=== PATIENT | male | born 1960 | race Caucasian/White ===

== ENCOUNTER 2025-08-22 19:29 | Emergency (ER) | payer BC, SELFPAY ==
[2025-08-22 19:29] VITALS: BP 144/74; PULSE 92; RESP 16; TEMP 36.8; O2SAT 100; BMI 24.4
--- NOTE | 2025-08-22 21:30 | RAD_ITS ---
PROCEDURE: CHEST PA AND LATERAL 08/22/2025 REASON FOR EXAM: COUGH TECHNIQUE: Procedure Code: RADCXR Modality: DX Procedure: CHEST PA AND LATERAL COMPARISON: None. FINDINGS: Lungs/Pleura: Clear. No focal consolidation or pleural effusion. Heart/Mediastinum: Normal in size. Bones/Soft tissues: No significant abnormality. RAD/Chest PA and Lateral IMPRESSION: No acute pulmonary disease. Reading Location: [id number]
--- NOTE | 2025-08-22 21:41 | EDS_ITS ---
HPI HPI - URI History of Present Illness Chief Complaint: Cough Informant: patient Onset/Context/Timing Onset: Today Current Severity: Mild Maximum Severity: Mild Associated Symptoms Associated Symptoms: Positive for Nonproductive cough Narrative Narrative: 65-year-old male diagnosed with COVID on the th. Said his cough is slightly worse today and to make sure he did not develop pneumonia. He denies vomiting. He denies hemoptysis or significant chest pain. Prior similar symptoms: Yes Recent Illness/Hospitalization: No ROS ROS ED ROS Narrative Cough Constitutional Constitutional ED: Denies chills or fever(s) Eyes Eyes: Denies blurry vision ENT ENT ED: Denies ear pain Cardiovascular Cardiovascular: Denies chest pain Respiratory/Chest Respiratory/Chest: Denies cough, dyspnea or dyspnea on exertion Gastrointestinal Gastrointestinal: Denies abdominal pain Genitourinary Genitourinary ED: Denies dysuria or hematuria Musculoskeletal Musculoskeletal: Denies arthralgias Integumentary Denies abscess Neurologic Neurologic: Denies headache(s) Psychiatric Psychiatric: Denies anxiety Endocrine Endocrinology: Denies cold intolerance Hematologic/Lymphatic Hematologic/Lymphatic: Denies easy bleeding Allergic/Immunologic Allergic/Immunologic ED: Denies mouth swelling, tongue swelling or urticaria PFSH PFSH Medical History no medical history no medical history Home Medications ?Medication ?Instructions ?Recorded ?Last Taken ?Type famotidine 40 mg tablet 40 mg PO DAILY 08/22/2508/04 History rosuvastatin 5 mg tablet 5 mg PO DAILY 08/22/2508/21 History Allergy/AdvReac Type Severity Reaction Status Date / Time No Known Allergies Allergy Verified 08/22/25 19:31 Family History no significant family his Surgical History no surgical history Social History Smoking Status: Current every day smoker tobacco type: cigarettes EXAM Physical Exam Narrative Exam Narrative: Well-appearing 65-year-old male. No acute distress. Vital signs stable afebrile. Pulse ox 100% on room air no hypoxia. No distress. H EENT exam pupils round react to light. Moist mucous membranes. Neck nontender no JVD. No lymphadenopathy. Back nontender. Lungs clear to auscultation bilaterally. Heart regular rhythm no murmur rate about 90. Chest wall ribs nontender. Abdomen soft nontender. Moving all 4 extremities. Nontender no edema. Neurologically awake alert no focal motor deficits. Benign exam. Well- appearing. Const Vital Signs: 08/22/25 19:29 08/22/25 21:21 Temperature 98.3 F Temperature Source Oral Pulse Rate 92 Respiratory Rate 16 Respiratory Effort Normal Non-Labored Respiratory Depth Normal Respiratory Pattern Normal Blood Pressure 144/74 H Blood Pressure Mean 97 Pulse Ox 100 Oxygen Delivery Method Room Air Room Air MDM MDM MDM Narrative Medical decision making narrative: 65-year-old male recently diagnosed with COVID 1 to make sure is not developed pneumonia. Exam benign. Chest x-ray was [place] was negative. He will be discharged home. History & Record Review Discussion w/independent historian: Patient Additional record(s) reviewed:: Prior outpatient record, Prior ED visit and Prior labs Radiography Chest X-Ray - ED: 2 View, Read by ED Physician, Normal, Heart, Lungs, Mediastinum, Bony Structures, No Acute Disease and Chronic Changes Diagnostic Testing: Chest x-ray, 2 views, AP and lateral, interpreted by myself shows normal cardiac silhouette. Normal mediastinum. Normal lung gonzalez. No pneumonia. No effusions. Discharge Plan Triage Chief Complaint: Cough ED Provider: Usama Hammer Dx/Rx/DC Orders Clinical Impression: COVID Instructions: Human Coronaviruses Prescriptions: No Action famotidine 40 mg tablet 40 mg PO DAILY rosuvastatin 5 mg tablet 5 mg PO DAILY Primary Care Provider: Marlon Berry Referrals: Marlon Berry MD [Primary Care Provider, [facility]] - As Needed Activity Restrictions/Additional Instructions: Plenty of fluids and rest. Motrin and Tylenol for any pain. Follow-up with your doctor as needed. Your chest x-ray looked good tonight. No signs of pneumonia. Print Language: Divehi Disposition Disposition: Home, Self Care
[2025-08-22 21:43] VITALS: BP 130/67; PULSE 85; RESP 16; TEMP 36.8; O2SAT 97
--- OUTSIDE RECORDS SUMMARY | 2025-08-22 21:49 | XMS RPT_ITS | CCD ---
Author Organization [facility] Informpending [facility] to [facility] [employer] [facility] Care Team Providers Care Janitorial Assistant Name Role Phone Mariela Rico MD Primary Care Provider [phone] Mariela Rico MD Primary Care Provider [phone] Maximo PERAZA.Olga MCGOWAN Unavailable Antonia Ruggiero PA-C Unavailable [phone] Mariela Rico MD Primary Care Provider MARIELA RICO Attending Unavailable MARIELA RICO Primary Care Unavailable MARIELA RICO Referring Unavailable MARIELA RICO Primary Care Unavailable Olga Marsh APRN.CNP Unavailable Antonia Ruggiero PA-C Unavailable [phone] Medications Current Medications Medication Drug Class(es) Dates Sig (Normalized) Sig (Original) amoxicillin 875 mg / clavulanate 125 mg oral tablet (2 sources) Penicillin-class Antibacterial Start: 06-21-2022 End: 06-26-2022 take 1 tablet by mouth twice daily amoxicillin-clavul anic acid (AUGMENTIN) 875-125 mg per tablet Take 1 tablet by mouth twice daily for 5 days. 10 tablet 0 06/21/2022 06/26/2022 Active Comment on above: Take 1 tablet by [facility] twice daily for 5 days. azithromycin 250 mg oral tablet (2 sources) Macrolide Antimicrobial Start: 06-21-2022 End: 06-26-2022 take 2 tablets by mouth once daily, then take 1 tablet by mouth once daily azithromycin (ZITHROMAX) 250 mg tablet Take 2 tablets by mouth once daily for 1 day, THEN 1 tablet once daily for 4 days. 6 tablet 0 06/21/2022 06/26/2022 Active Comment on above: Take 2 tablets by mo [facility] once daily for 1 day, THEN 1 tablet once daily for 4 days. famotidine 40 mg oral tablet (9 sources) Histamine-2 Receptor Antagonist Start: 12-09-2023 End: 04-16-2025 take 1 tablet by mouth once daily famotidine (PEPCID) 40 mg tablet Take 1 tablet by mouth once daily. 90 tablet 1 04/16/2025 Active Comment on above: [facility] mometasone furoate 1 mg/ml topical cream (7 sources) Corticosteroid Start: 12-09-2023 mometasone (ELOCON) 0.1 % cream Apply to areas twice a day. On for 4 days and off for 3 days. Repeat as needed. 15 g 1 12/09/2023 Active Comment on above: Apply to areas twice a day. On for 4 days and off for 3 days. Repeat as needed. rosuvastatin calcium 5 mg oral tablet (20 sources) HMG-CoA Reductase Inhibitor Start: 10-18-2021 End: 04-16-2025 take 1 tablet by mouth once daily at bedtime rosuvastatin (CRESTOR) 5 mg tablet Indications: Hyperlipidemia, mixed Take 1 tablet by mouth daily at bedtime. 90 tablet 1 04/16/2025 Active Comment on above: Take 1 tablet by [facility] daily at bedtime. Completed/Discontinued Medications Medication Drug Class(es) Dates Sig (Normalized) Sig (Original) [id number] 200 actuat albuterol 0.09 mg/actuat metered dose inhaler (3 sources) beta2-Adrenergic Agonist Start: 06-21-2022 take 2 puff(s) by inhalation every six hours as needed albuterol HFA (PROAIR HFA) 90 mcg/actuation inhaler Inhale 2 Puffs as instructed every 6 hours as needed. 1 Each 0 06/21/2022 Active Comment on above: Inhale 2 Puffs as in structed every 6 hours as needed. benzonatate 100 mg oral capsule (4 sources) Non-narcotic Antitussive Start: 06-04-2023 End: 12-09-2023 take 2 capsules by mouth every eight hours as needed benzonatate (TESSALON PERLE) 100 mg capsule Take 2 capsules by mouth three times a day as needed. 30 capsule 0 06/04/2023 12/09/2023 Discontinued (Course of therapy completed) Start: 06-21-2022 take 2 capsules by m outh every eight hours as needed benzonatate (TESSALON PERLES) 100 mg capsule Take 2 capsules by mouth three times daily as needed. 30 capsule 0 06/21/2022 Active Comment on above: Take 2 capsules by m outh three times daily as needed. Take 2 capsules by m outh three times a day as needed. brompheniramine maleate 0.4 mg/ml / dextromethorphan hydrobromide 2 mg/ml / pseudoephedrine hydrochloride 6 mg/ml oral solution (5 sources) alpha-Adrenergic Agonist, Uncompetitive H-abfwzk-N-aspartate Receptor Antagonist, Sigma-1 Agonist Start: 06-16-20 End: 12-11-19 25 take 5 mL by mouth every six hours as needed Brompheniramine-Pse udoeph-DM (BROMFED DM) 2-30-10 mg/5 mL syrup Take 5 mL by mouth four times a day as needed. 118 mL 06/16/2023 12/10/2024 Discontinued (Course of therapy completed) Comment on above: Take 5 mL by mouth f our times a day as needed. ibuprofen 200 mg oral tablet (1 source) Nonsteroidal Anti-inflammatory Drug End: 06-30-20 take 1 tablet by mouth every six hours as needed ibuprofen (ADVIL) 200 mg tablet Take 200 mg by mouth every 6 hours as needed. 06/30/2021 Discontinued (Other) Problems Active Problems Problem Classification Problem Date Documented Date Episodic/Chronic Disorders of lipid metabolism (20 sources) Mixed hyperlipidemia; Translations: [Mixed hyperlipidemia] Onset: 09-18-2021 Chronic Esophageal disorders (8 sources) Gastroesophageal reflux disease without esophagitis; Translations: [Gastro-esophageal reflux disease without esophagitis] Onset: 12-09-2023 12-09-2023 Chronic Immunizations and screening for infectious disease (2 sources) Vaccination needed; Translations: [Encounter for immunization] Onset: 12-10-2024 12-10-2024 Episodic Osteoarthritis (10 sources) Osteoarthritis; Translations: [Unspecified osteoarthritis, unspecified site] Onset: 08-30-2022 08-30-2022 Chronic Other inflammatory condition of skin (20 sources) Psoriasis; Translations: [Psoriasis, unspecified] Onset: 10-17-2007 08-30-2021 Chronic Other lower respiratory disease (2 sources) Cough; Translations: [Acute cough] 06-16-2023 Episodic Other lower respiratory disease (1 source) Cough; Translations: [Acute cough] 06-21-2022 Episodic Other nervous system disorders (1 source) Paresthesia of hand ; Translations: [Anesthesia of skin] 12-09-2023 Episodic Pneumonia (except that caused by tuberculosis or sexually transmitted disease) (1 source) Infective pneumonia; Translations: [Pneumonia, unspecified organism] Episodic Residual codes; unclassified (1 source) Tobacco user; Translations: [Tobacco use] 12-16-2024 Episodic Substance-related disorders (20 sources) Smoker; Translations: [Nicotine dependence, unspecified, uncomplicated] Onset: 07-24-2015 08-30-2021 Chronic Past or Other Problems Problem Classification Problem Date Documented Da te Episodic/Chronic Other screening for suspected conditions (not mental disorders or infectious disease) (20 sources) Patient encounter status; Translations: [Encounter for screening for malignant neoplasm of prostate] Onset: 05-06-2014 05-06-2014 Episodic Other skin disorders (19 sources) Asteatosis cutis; Translations: [Xerosis cutis] Onset: 08-10-2010 07-24-2015 Episodic Residual codes; unclassified (19 sources) Family history of ischemic heart disease; Translations: [Family history of ischemic heart disease and other diseases of the circulatory system] Onset: 08-13-2010 09-18-2021 Episodic Residual codes; unclassified (20 sources) Family history of prostate cancer; Translations: [Family history of malignant neoplasm of prostate] Onset: 08-13-2010 09-18-2021 Episodic Residual codes; unclassified (1 source) Family history of malignant neoplasm of prostate; Translations: [Family hx of prostate cancer] Onset: 09-18-2021 Episodic Results Test Name Value Interpretation Reference Range Facility [facility] 12-10-2024 CNOV Office Visit (FAMPWS ) LUIS LEMON ([id number]) 1960 M NFR Date Time Provider Department 12/10/24 9:00 AM MARIELA RICO During your visit today, we recorded the following information about you: Pulse Respiration Blood pressure Weight 78/minute 18/minute 114/70 69.4 kg Height 1.74 m Mariela Rico MD 12/10/2024 7:17 PM Signed Chief Complaint Patient presents with: Physical HPI Luis Lemon is a 64 year old male who presents here today for Physical. Patient with Hx of hyperlipidemia, psoriasis, smker, family Hx of prostate cancer and those reviewed below. Patient continues to smoke daily and aware of the health risks. Not interested in quitting. Patient continues to have good control of his GERD with the Pepcid. Past medical history, appointments, medications, allergies reviewed. Previous Medical History PAST MEDICAL HISTORY Diagnosis Date Contact dermatitis and other eczema, due to unspecified cause 10/17/2007 Fam hx-ischem heart disease 08/13/2010 Family hx of prostate cancer 08/13/2010 Hyperlipidemia, mixed 09/18/2021 Osteoarthritis 08/30/2022 Knee and shoulder. Sees ortho Psoriasis Smoker 07/24/2015 Started around age 22 and up to 1 PPD Snoring Xerosis cutis 08/10/2010 Previous Surgical History PAST SURGICAL HISTORY Procedure Laterality Date COLONOSCOPY FLX DX W/COLLJ SPEC WHEN PFRMD 10/15/2018 Colonoscopy PAST SURGICAL HISTORY OF 1991 left forearm injury- laceration REPAIR DIAPHR HERNIA,THOR/ABD 2004 +/- Abdominal hernia ([facility]) Family History FAMILY HISTORY Problem Relation Age of Onset None Mother Heart Father first at age 45-50 Emphysema Father Prostate Cancer Other (thinks dad may have had this) Colon Cancer Other none known Patient Allergies ALLERGIES No Known Allergies Current Medications Current Outpatient Medications on File Prior to Visit Medication Sig rosuvastatin (CRESTOR) 5 mg tablet Take 1 tablet by mouth daily at bedtime. famotidine (PEPCID) 40 mg tablet Take 1 tablet by mouth once daily. mometasone (ELOCON) 0.1 % cream Apply to areas twice a day. On for 4 days and off for 3 days. Repeat as needed. Oruvjqogiualzwy-Yeskehlah-MY (BROMFED DM) 2-30-10 mg/5 mL syrup Take 5 mL by mouth four times a day as needed. No current facility-administered medications on file prior to visit. Social History Social History Tobacco Use Smoking status: Every Day Current packs/day: 1.00 Average packs/day: 1 pack/day for 20.0 years (20.0 ttl pk-yrs) Types: Cigarettes Smokeless tobacco: Never Vaping Use Vaping status: Never Used Substance Use Topics Alcohol use: No Drug use: No Comment: hx marijuana use in the past Review of Symptoms REVIEW OF SYSTEMS GENERAL: No unintentional weight loss, malaise or fevers HEENT: Negative for frequent or significant headaches, No changes in hearing or vision, no nose bleeds. Has nasal drainage form allergies. NECK: Negative for lumps, goiter, pain and significant neck swelling RESPIRATORY: Negative for cough, hemoptysis, wheezing, COPD, dyspnea or shortness of breath CARDIOVASCULAR: Negative for chest pain, leg swelling, hypertension, CHF or palpitations GI: No nausea, vomiting, or diarrhea, No heartburn or reflux symptoms, and no blood : No history of dysuria, frequency or blood MUSCULOSKELETAL: Negative for joint pain or swelling, back pain or muscle pain SKIN: Negative for lesions, rash, and itching PSYCH: Negative for sleep disturbance, mood disorder and recent psychosocial stressors HEMATOLOGY/LYMPHOLOGY: Negative for prolonged bleeding, bruising easily or swollen nodes ENDOCRINE: Negative for cold or heat intolerance, polyuria, polydipsia and goiter NEURO: No history of headaches, syncope, paralysis, seizures or tremors EXAM: BP 114/70 Pulse 78 Resp 18 Ht 174 cm (5' 8.5) Wt 69.4 kg (153 lb) BMI 22.93 kg/m? Last 5 Encounter Wt Readings: Date: Wt: 12/10/2024 69.4 kg (153 lb) 12/09/2023 73.9 kg (163 lb) 06/16/2023 72.5 kg (159 lb 12.8 oz) 06/04/2023 72 kg (158 lb 12.8 oz) 08/30/2022 71.7 kg (158 lb) General Appearance: Well appearing, alert, in no acute distress, well-hydrated, well nourished.. Skin: Skin color, texture, turgor normal, no suspicious rashes or lesions. Head: Normocephalic, no masses, lesions, tenderness or abnormalities. Eyes: Anicteric sclera. Pupils are equally round and reactive to light. Extraocular movements are intact. . Ears: External ears, TM's normal, canals clear. Nose/Sinuses: Nares normal, septum midline, mucosa normal, no drainage or sinus tenderness. Oropharynx: Lips, mucosa, and tongue normal, teeth and gums normal, oropharynx normal. Neck: Supple, no adenopathy; thyroid symmetric, normal size, no bruits. Lungs: Lungs clear to auscultation. No wheezing, rhonchi, rales.. Heart: (more content not included)... Normal [facility] Comprehensive metabolic 2000 panelon 12-10-2024 Albumin [Mass/Vol] 4.3 g/dL Normal 3.9-4.9 [facility] Comment on above: Order Comment: Jo mora Type: BLOOD SPECIMEN Ordering Facility: [facility] Address: [address] [place] [address] Performed By: #### 2 4323-8, LIPNF #### [facility] CLIA [id number] [address] [place] [address] [place] ALP [Catalytic activity/Vol] 83 U/L Normal 38-113 [facility] Comment on above: Order Comment: Jo mora Type: BLOOD SPECIMEN Ordering Facility: [facility] Address: [address] [place] [address] Performed By: #### 2 4323-8, LIPNF #### [facility] CLIA [id number] [address] [place] [address] [place] ALT [Catalytic activity/Vol] 8 U/L Low 10-54 [facility] Comment on above: Order Comment: Marcusi abby Type: BLOOD SPECIMEN Ordering Facility: [facility] Address: [address] [place] [address] Performed By: #### 2 4323-8, LIPNF #### [facility] CLIA [id number] [address] [place] [address] [place] Anion gap [Moles/Vol] 9 mmol/L Normal 8-15 [facility] Comment on above: Order Comment: Speci men Type: BLOOD SPECIMEN Ordering Facility: [facility] Address: [address] [place] [address] Performed By: #### 2 4323-8, LIPNF #### [facility] CLIA [id number] [address] [place] [address] [place] AST [Catalytic activity/Vol] 18 U/L Normal 14-40 [facility] Comment on above: Order Comment: Speci men Type: BLOOD SPECIMEN Ordering Facility: [facility] Address: [address] [place] [address] Performed By: #### 2 4323-8, LIPNF #### [facility] CLIA [id number] [address] [place] [address] [place] Bilirubin [Mass/Vol] 0.5 mg/dL Normal 0.2-1.3 [facility] Comment on above: Order Comment: Speci men Type: BLOOD SPECIMEN Ordering Facility: [facility] Address: [address] [place] [address] Performed By: #### 2 4323-8, LIPNF #### [facility] CLIA [id number] [address] [place] [address] [place] Calcium [Mass/Vol] 9.6 mg/dL Normal 8.5-10.2 [facility] Comment on above: Order Comment: Speci men Type: BLOOD SPECIMEN Ordering Facility: [facility] Address: [address] [place] [address] Performed By: #### 2 4323-8, LIPNF #### [facility] CLIA [id number] [address] [place] [address] [place] Chloride [Moles/Vol] 106 mmol/L Normal 98-107 [facility] Comment on above: Order Comment: Speci men Type: BLOOD SPECIMEN Ordering Facility: [facility] Address: [address] [place], [place] [address] Performed By: #### 2 4323-8, LIPNF #### [facility] CLIA [id number] [address] [place] [address] [place] CO2 [Moles/Vol] 27 mmol/L Normal 22-30 [facility] Comment on above: Order Comment: Speci men Type: BLOOD SPECIMEN Ordering Facility: [facility] Address: [address] [place] [address] Performed By: #### 2 4323-8, LIPNF #### [facility] CLIA [id number] [address] [place] [address] [place] Creatinine [Mass/Vol] 1.04 mg/dL Normal 0.73-1.22 [facility] Comment on above: Order Comment: Speci men Type: BLOOD SPECIMEN Ordering Facility: [facility] Address: [address] [place] [address] Performed By: #### 2 4323-8, LIPNF #### [facility] CLIA [id number] [address] [place] [address] [place] Creatinine and Glomerular filtration rate.predicted panel (S/P/Bld) 81 mL/min/1.73m??? Normal >=60 [facility] Comment on above: Order Comment: Speci men Type: BLOOD SPECIMEN Ordering Facility: [facility] Address: [address] [place] [address] Result Comment: Janeen mated Glomerular Filtration Rate (eGFR) is calculated using the 2020 CKD-EPI creatinine equation. This equation utilizes serum creatinine, sex, and age as parameters. The creatinine assay has traceable calibration to isotope dilution-mass spectrometry. Refer to KDIGO guidelines for clinical interpretation. In patients with unstable renal function, e.g. those with acute kidney injury, the eGFR may not accurately reflect actual GFR. Performed By: #### 2 4323-8, LIPNF #### [facility] CLIA [id number] [address] [place] [address] [place] Glucose [Mass/Vol] 82 mg/dL Normal 74-99 [facility] Comment on above: Order Comment: Speci men Type: BLOOD SPECIMEN Ordering Facility: [facility] Address: [address] [place] [address] Result Comment: The [place] Diabetes Association (ADA) provides guidance for cutoff values for fasting glucose and random glucose. The ADA defines fasting as no caloric intake for at least 8 hours. Fasting plasma glucose results between 100 to 125 mg/dL indicate increased risk for diabetes (prediabetes). Fasting plasma glucose results greater than or equal to 126 mg/dL meet the criteria for diagnosis of diabetes. In the absence of unequivocal hyperglycemia, results should be confirmed by repeat testing. In a patient with classic symptoms of hyperglycemia or hyperglycemic crisis, random plasma glucose results greater than or equal to 200 mg/dL meet the criteria for diagnosis of diabetes. Reference: Standards of Medical Care in Diabetes 2016, [place] Diabetes Association. Diabetes Care. 2016.39(Suppl 1). Performed By: #### 2 4323-8, LIPNF #### [facility] CLIA [id number] [address] [place] [address] [place] Potassium [Moles/Vol] 4.1 mmol/L Normal 3.7-5.1 [facility] Comment on above: Order Comment: Jo mora Type: BLOOD SPECIMEN Ordering Facility: [facility] Address: [address] [place] [address] Performed By: #### 2 4323-8, LIPNF #### [facility] CLIA [id number] [address] [place] [address] [place] Protein [Mass/Vol] 7.0 g/dL Normal 6.3-8.0 [facility] Comment on above: Order Comment: Jo mora Type: BLOOD SPECIMEN Ordering Facility: [facility] Address: [address] [place] [address] Performed By: #### 2 4323-8, LIPNF #### [facility] CLIA [id number] [address] [place] [address] [place] Sodium [Moles/Vol] 142 mmol/L Normal 136-144 [facility] Comment on above: Order Comment: Speci men Type: BLOOD SPECIMEN Ordering Facility: [facility] Address: [address] [place] [address] Performed By: #### 2 4323-8, LIPNF #### [facility] CLIA [id number] [address] [place] [address] [place] Urea nitrogen [Mass/Vol] 22 mg/dL Normal 9-24 [facility] Comment on above: Order Comment: Speci men Type: BLOOD SPECIMEN Ordering Facility: [facility] Address: [address] [place] [address] Performed By: #### 2 4323-8, LIPNF #### [facility] CLIA [id number] [address] [place] [address] [place] HbA1c (Bld)on 12-10-2024 Average glucose Estimated from glycated hemoglobin (Bld) [Mass/Vol] 97 mg/dL [facility] Comment on above: eAG: (Estimated aver age glucose) is a calculated value from HgbA1c and is computer help desk representative of the average blood glucose level in the last 2-3 month period. HbA1c (Bld) [Mass fraction] 5 % 4.3 - 5.6 % [facility] Comment on above: [place] Diabetes As sociation guidelines indicate that patients with HgbA1c in the range 5.7-6.4% are at increased risk for development of diabetes, and intervention by lifestyle modification may be beneficial. HgbA1c greater or equal to 6.5% is considered diagnostic of diabetes. [facility] Average glucose Estimated from glycated hemoglobin (Bld) [Mass/Vol] 97 mg/dL Normal [facility] Comment on above: Order Comment: Marcusi men Type: BLOOD SPECIMEN Ordering Facility: [facility] Address: [address] [place] [address] Result Comment: eAG: (Estimated average glucose) is a calculated value from HgbA1c and is computer help desk representative of the average blood glucose level in the last 2-3 month period. Performed By: #### 5 5454-3 #### [facility] CLIA [id number] [address] [place] [address] [place] HbA1c (Bld) [Mass fraction] 5.0 % Normal 4.3-5.6 [facility] Comment on above: Order Comment: Jo mora Type: BLOOD SPECIMEN Ordering Facility: [facility] Address: [address] [place] [address] Result Comment: [place] Diabetes Association guidelines indicate that patients with HgbA1c in the range 5.7-6.4% are at increased risk for development of diabetes, and intervention by lifestyle modification may be beneficial. HgbA1c greater or equal to 6.5% is considered diagnostic of diabetes. Performed By: #### 5 5454-3 #### [facility] CLIA [id number] [address] [place] [address] OF [place] LIPID PANEL, NONFASTINGon Cholesterol [Mass/Vol] 152 mg/dL Normal <200 [facility] Comment on above: Order Comment: Jo mora Type: BLOOD SPECIMEN Ordering Facility: [facility] Address: [address] [place] [address] Result Comment: <200 mg/dL, Desirable 200-239 mg/dL, Borderline high >239 mg/dL, High Performed By: #### 2 4323-8, LIPNF #### [facility] CLIA [id number] [address] [place] [address] [place] [facility] HDL CHOLESTEROL, NF 51 mg/dL Normal >39 [facility] Comment on above: Order Comment: Jo mora Type: BLOOD SPECIMEN Ordering Facility: [facility] Address: [address] [place] [address] Result Comment: 40-5 9 mg/dL, Acceptable >59 mg/dL, High: Negative risk factor for coronary heart disease <40 mg/dL, Low: Positive risk factor for coronary heart disease Performed By: #### 2 4323-8, LIPNF #### [facility] CLIA [id number] [address] [place] [address] [place] LDL CHOLESTEROL, NF 88 mg/dL Normal <100 [facility] Comment on above: Order Comment: Jo mora Type: BLOOD SPECIMEN Ordering Facility: [facility] Address: [address] [place] [address] Result Comment: <100 mg/dL, Optimal 100-129 mg/dL, Near optimal/above optimal 130-159 mg/dL, Borderline high 160-189 mg/dL, High >189 mg/dL, Very high Secondary prevention optimal LDL Cholesterol levels are recommended to be < 70 mg/dL Performed By: #### 2 4323-8, LIPNF #### [facility] CLIA [id number] [address] [place] [address] [place] LDL/HDL RATIO, NF 1.73 mg/dL Normal <2.54 [facility] Comment on above: Order Comment: Jo omra Type: BLOOD SPECIMEN Ordering Facility: [facility] Address: [address] [place] [address] Result Comment: Yocasta benton: 1. National Cholesterol Education Program ATP III Guideline At-A-Glance Quick Desk Reference: National Heart, Lung, and Blood [place]. National Institutes of Health. 2001: NIH Publication No. 01-3305. 2. An International Atherosclerosis Society position paper: global recommendations for the management of dyslipidemia: executive summary, Atherosclerosis. 2014: 232(2):410-413. Performed By: #### 2 4323-8, LIPNF #### [facility] CLIA [id number] [address] [place] [address] [place] NON HDL CHOL, NF 101 mg/dL Normal <130 [facility] Comment on above: Order Comment: Jo abby Type: BLOOD SPECIMEN Ordering Facility: [facility] Address: [address] [place] [address] Result Comment: <130 mg/dL, Optimal 130-159 mg/dL, Near optimal/above optimal 160-189 mg/dL, Borderline high 190-219 mg/dL, High >219 mg/dL, Very high Secondary prevention optimal non HDL Cholesterol levels are recommended to be <100 mg/dL Performed By: #### 2 4323-8, LIPNF #### [facility] CLIA [id number] [address] [place] [address] [place] T CHOL/HDL RATIO NF 2.98 mg/dL Normal <5.10 [facility] Comment on above: Order Comment: Speci men Type: BLOOD SPECIMEN Ordering Facility: [facility] Address: [address] [place] [address] Performed By: #### 2 4323-8, LIPNF #### [facility] CLIA [id number] [address] [place] [address] [place] TRIGLYCERIDES, NF 66 mg/dL Normal <150 [facility] Comment on above: Order Comment: Speci men Type: BLOOD SPECIMEN Ordering Facility: [facility] Address: [address] [place] [address] Result Comment: <150 mg/dL, Normal 150-199 mg/dL, Borderline high 200-499 mg/dL, High >499 mg/dL, Very high Performed By: #### 2 4323-8, LIPNF #### [facility] CLIA [id number] [address] [place] [address] [place] VLDL CHOLESTEROL, NF 13 mg/dL Normal <30 [facility] Comment on above: Order Comment: Speci men Type: BLOOD SPECIMEN Ordering Facility: [facility] Address: [address] [place] [address] Performed By: #### 2 4323-8, LIPNF #### [facility] CLIA [id number] [address] [place] [address] [place] PSA SerPl-mCncon 12-10-2024 Prostate specific Ag [Mass/Vol] 0.48 ng/mL Normal <2.60 [facility] Comment on above: Order Comment: Speci men Type: BLOOD SPECIMEN Ordering Facility: [facility] Address: [address] [place] [address] Result Comment: Tota l PSA test methodology used is the Electrochemiluminescence Immunoassay by [employer]. Total PSA values by differing methodologies cannot be interchanged. Performed By: #### 2 857-1 #### [facility] CLIA [id number] [address] [place], [place] [address] [address] [place] Urinalysis complete panel (U )on 12-10-2024 Bacteria LM.HPF (Urine sed) [#/Area] Negative Negative /HPF [facility] Bilirubin Ql (U) Negative Negative [facility] Clarity (Unsp spec) Clear Clear [facility] Color (U) Yellow Yellow [facility] Epithelial cells LM.HPF (Urine sed) [#/Area] None Seen /HPF [facility] Glucose Test strip (U) [Mass/Vol] Negative Negative [facility] Hemoglobin Ql (U) Negative Negative [facility] Hyaline casts (Urine sed) [#/Area] 0 /[LPF] 0 /LPF [facility] Interpretation and review of laboratory results Abnormal [facility] Ketones Ql (U) Negative Negative [facility] Leukocyte esterase Test strip Ql (U) Negative Negative [facility] Nitrite Ql (U) Negative Negative [facility] pH (U) 6 [pH] NINF - 8.5 [facility] Protein (U) [Mass/Vol] Trace Abnormal Negative [facility] RBC LM.HPF (Urine sed) [#/Area] 0-2 /HPF 0-2 /HPF [facility] Specific gravity (U) [Rel density] 1.027 1.005 - 1.030 [facility] Urobilinogen Ql (U) 1.0 EU/dL 0.2-1.0 EU/dL [facility] WBC LM.HPF (Urine sed) [#/Area] 0-5 /HPF 0-5 /HPF [facility] This test was tee barger and its performance characteristics determined by [facility]'s [facility] Pathology and Laboratory Medicine [place] ([facility]). It has not been cleared or approved by the FDA. [facility] is regulated under CLIA as qualified to perform high-complexity testing. This test is used for clinical purposes. It should not be regarded as investigational or for research. [facility] Bacteria LM.HPF (Urine sed) [#/Area] Negative Normal Negative [facility] Comment on above: Order Comment: Speci men Type: URINE SPECIMEN Ordering Facility: [facility] Address: [address] [place], [place] [address] Performed By: #### 2 4356-8 #### [facility] CLIA [id number] [address] [place] [address] [place] Bilirubin Ql (U) Negative Normal Negative [facility] Comment on above: Order Comment: Speci men Type: URINE SPECIMEN Ordering Facility: [facility] Address: [address] [place] [address] Performed By: #### 2 4356-8 #### [facility] CLIA [id number] [address] [place] [address] [place] Clarity (Unsp spec) Clear Normal Clear [facility] Comment on above: Order Comment: Speci men Type: URINE SPECIMEN Ordering Facility: [facility] Address: [address] [place] [address] Performed By: #### 2 4356-8 #### [facility] CLIA [id number] [address] [place] [address] [place] [facility] Color (U) Yellow Normal Yellow [facility] Comment on above: Order Comment: Speci men Type: URINE SPECIMEN Ordering Facility: [facility] Address: [address] [place] [address] Performed By: #### 2 4356-8 #### [facility] CLIA [id number] [address] [place] [address] [place] Epithelial cells LM.HPF (Urine sed) [#/Area] None Seen Normal [facility] Comment on above: Order Comment: Speci men Type: URINE SPECIMEN Ordering Facility: [facility] Address: [address] [place] [address] Performed By: #### 2 4356-8 #### [facility] CLIA [id number] [address] [place], [place] [address] [place] Glucose Test strip (U) [Mass/Vol] Negative Normal Negative [facility] Comment on above: Order Comment: Speci men Type: URINE SPECIMEN Ordering Facility: [facility] Address: [address] [place] [address] Performed By: #### 2 4356-8 #### [facility] CLIA [id number] [address] [place] [address] [place] Hemoglobin Ql (U) Negative Normal Negative [facility] Comment on above: Order Comment: Speci men Type: URINE SPECIMEN Ordering Facility: [facility] Address: [address] [place] [address] Performed By: #### 2 4356-8 #### [facility] CLIA [id number] [address] [place] [address] [place] Hyaline casts (Urine sed) [#/Area] 0 /[LPF] Normal 0 /LPF [facility] Comment on above: Order Comment: Speci men Type: URINE SPECIMEN Ordering Facility: [facility] Address: [address] [place] [address] Performed By: #### 2 4356-8 #### [facility] CLIA [id number] [address] [place] [address] [place] Ketones Ql (U) Negative Normal Negative [facility] Comment on above: Order Comment: Speci men Type: URINE SPECIMEN Ordering Facility: [facility] Address: [address] [place] [address] Performed By: #### 2 4356-8 #### [facility] CLIA [id number] [address] [place] [address] [place] Leukocyte esterase Test strip Ql (U) Negative Normal Negative [facility] Comment on above: Order Comment: Speci men Type: URINE SPECIMEN Ordering Facility: [facility] Address: [address] [place] [address] Performed By: #### 2 4356-8 #### [facility] CLIA [id number] [address] [id number] [address] [place] Nitrite Ql (U) Negative Normal Negative [facility] Comment on above: Order Comment: Speci men Type: URINE SPECIMEN Ordering Facility: [facility] Address: [address] [place] [address] Performed By: #### 2 4356-8 #### [facility] CLIA [id number] [address] [place] [address] [place] pH (U) 6.0 [pH] Normal <8.5 [facility] Comment on above: Order Comment: Speci men Type: URINE SPECIMEN Ordering Facility: [facility] Address: [address] [place] [address] Performed By: #### 2 4356-8 #### [facility] CLIA [id number] [address] [place] [address] [place] Protein (U) [Mass/Vol] Trace Abnormal Negative [facility] Comment on above: Order Comment: Speci men Type: URINE SPECIMEN Ordering Facility: [facility] Address: [address] [place] [address] Performed By: #### 2 4356-8 #### [facility] CLIA [id number] [address] [place] [address] [place] RBC LM.HPF (Urine sed) [#/Area] 0-2 /HPF Normal 0-2 /HPF [facility] Comment on above: Order Comment: Speci men Type: URINE SPECIMEN Ordering Facility: [facility] Address: [address] [place] [address] Performed By: #### 2 4356-8 #### [facility] CLIA [id number] [address] [place] [address] [place] Specific gravity (U) [Rel density] 1.027 Normal 1.005-1.030 [facility] Comment on above: Order Comment: Speci men Type: URINE SPECIMEN Ordering Facility: [facility] Address: [address] [place] [address] Performed By: #### 2 4356-8 #### [facility] CLIA [id number] [address] [place] [address] [place] Urobilinogen Ql (U) 1.0 EU/dL Normal 0.2-1.0 EU/dL [facility] Comment on above: Order Comment: Speci men Type: URINE SPECIMEN Ordering Facility: [facility] Address: [address] [place] [address] Performed By: #### 2 4356-8 #### [facility] CLIA [id number] [address] [place] [address] [place] WBC LM.HPF (Urine sed) [#/Area] 0-5 /HPF Normal 0-5 /HPF [facility] Comment on above: Order Comment: Speci men Type: URINE SPECIMEN Ordering Facility: [facility] Address: [address] [place] [address] Performed By: #### 2 4356-8 #### [facility] CLIA [id number] [address] [place] [address] [place] Comprehensive metabolic 2000 panelon 12-09-2023 Albumin [Mass/Vol] 4.1 g/dL 3.9 - 4.9 g/dL [facility] ALP [Catalytic activity/Vol] 88 U/L 38 - 113 U/L [facility] ALT [Catalytic activity/Vol] 15 U/L 10 - 54 U/L [facility] Anion gap [Moles/Vol] 9 mmol/L 9 - 18 mmol/L [facility] AST [Catalytic activity/Vol] 22 U/L 14 - 40 U/L [facility] Bilirubin [Mass/Vol] 0.5 mg/dL 0.2 - 1.3 mg/dL [facility] Calcium [Mass/Vol] 9.6 mg/dL 8.5 - 10. 2 mg/dL [facility] Chloride [Moles/Vol] 107 mmol/L High 97 - 105 mmol/L [facility] CO2 [Moles/Vol] 26 mmol/L 22 - 30 mmol/L [facility] Creatinine [Mass/Vol] 1.14 mg/dL 0.73 - 1.22 mg/dL [facility] Estimated Glomerular Filtration Rate 73 mL/min/1.73m >=60 mL/min/1.73m [facility] Glucose [Mass/Vol] 92 mg/dL 74 - 99 mg/dL [facility] Potassium [Moles/Vol] 4.1 mmol/L 3.7 - 5.1 mmol/L [facility] Protein [Mass/Vol] 6.7 g/dL 6.3 - 8.0 g/dL [facility] Sodium [Moles/Vol] 142 mmol/L 136 - 144 mmol/L [facility] Urea nitrogen [Mass/Vol] 20 mg/dL 9 - 24 mg/dL [facility] FOLATE SERUMon 12-09-2023 Folate [Mass/Vol] 12.2 ng/mL >4.7 ng/mL [facility] HbA1c (Bld)on 12-09-2023 Average glucose Estimated from glycated hemoglobin (Bld) [Mass/Vol] 97 mg/dL [facility] HbA1c (Bld) [Mass fraction] 5.0 % 4.3 - 5.6 % [facility] LIPID PANEL, NONFASTINGon Cholesterol [Mass/Vol] 179 mg/dL <200 mg/dL [facility] HDL Cholesterol, Nonfasting 48 mg/dL >39 mg/dL [facility] LDL Cholesterol, Nonfasting 110 mg/dL High <100 mg/dL [facility] LDL/HDL Ratio, Nonfasting 2.29 mg/dL <2.54 mg/dL [facility] Non HDL Cholesterol, Nonfasting 131 mg/dL High <130 mg/dL [facility] Total Chol/HDL Ratio, Nonfasting 3.73 mg/dL <5.10 mg/dL [facility] Triglycerides, Nonfasting 106 mg/dL <150 mg/dL [facility] VLDL Cholesterol, Nonfasting 21 mg/dL <30 mg/dL [facility] MAGNESIUM BLDon 12-09-2023 Magnesium [Mass/Vol] 2.3 mg/dL 1.7 - 2.3 mg/dL [facility] PSA/PROSTSPECAG DIAGon 12-08 Prostate specific Ag [Mass/Vol] 0.56 ng/mL <2.60 ng/mL [facility] TSH BLDon 12-09-2023 TSH Qn 3.720 m[IU]/L 0.270 - 4.200 mIU/L [facility] Urinalysis complete panel (U )on 12-09-2023 Bilirubin Ql (U) Negative Negative [facility] Calcium Oxalate Crystals Few Abnormal None Seen /HPF [facility] Clarity (Unsp spec) Clear Clear [facility] Color (U) Yellow Yellow [facility] Glucose Test strip (U) [Mass/Vol] Negative Negative [facility] Hemoglobin Ql (U) Negative Negative [facility] Hyaline casts (Urine sed) [#/Area] 4-10 /LPF Abnormal 0 /LPF [facility] Ketones Ql (U) Negative Negative [facility] Leukocyte esterase Test strip Ql (U) Negative Negative [facility] Nitrite Ql (U) Negative Negative [facility] pH (U) 5.5 [pH] 5.0 - 8.0 [facility] Protein (U) [Mass/Vol] Negative Negative [facility] RBC LM.HPF (Urine sed) [#/Area] 0-3 /HPF 0-3 /HPF [facility] Specific gravity (U) [Rel density] High 1.005 - 1.030 [facility] Urobilinogen Ql (U) 0.2 EU/dL 0.2-1.0 EU/dL [facility] WBC LM.HPF (Urine sed) [#/Area] 0-5 /HPF 0-5 /HPF [facility] VITAMIN B12 BLOODon 12-09-19 24 Cobalamin (Vitamin B12) [Mass/Vol] 409 pg/mL 232 - 1,245 pg/mL [facility] XR Chest PA and Lateralon IMPRESSION: No acute radiographic abnormality. Urban Forester: JOHN Transcribe Date/Time: Jun 16 2023 1:05P Dictated by : ANCA SAMPSON MD This examination was interpreted and the report reviewed and electronically signed by: ANCA SAMPSON MD on Jun 16 2023 1:06PM [facility] DIVISION OF RADIOLOGY * * *Final Report* * * DATE OF EXAM: Jun 16 2023 1:05PM WOX 5291 - XR CHEST 2V FRONTAL/LAT / PROCEDURE REASON: Acute cough * * * * Physician Interpretation * * * * EXAMINATION: CHEST RADIOGRAPH (2 VIEW FRONTAL & LATERAL) CLINICAL HISTORY: Acute cough MQ: XC2_6 EXAM DATE/TIME: 06/16/2023 1:05 PM COMPARISON: Chest x-ray dated June 21, 2022 RESULT: Lines, tubes, and devices: None. Lungs and pleura: No consolidation. No lung mass. No pleural effusion. No pneumothorax. Cardiomediastinal silhouette: Normal cardiomediastinal silhouette. Bones and soft tissues: No acute abnormality. DIVISION OF RADIOLOGY Provider, Simona Rangel [facility] - 06/16/2023 * * *Final Report* * * DATE OF EXAM: Jun 16 2023 1:05PM WOX 5291 - XR CHEST 2V FRONTAL/LAT / PROCEDURE REASON: Acute cough * * * * Physician Interpretation * * * * EXAMINATION: CHEST RADIOGRAPH (2 VIEW FRONTAL & LATERAL) CLINICAL HISTORY: Acute cough MQ: XC2_6 EXAM DATE/TIME: 06/16/2023 1:05 PM COMPARISON: Chest x-ray dated June 21, 2022 RESULT: Lines, tubes, and devices: None. Lungs and pleura: No consolidation. No lung mass. No pleural effusion. No pneumothorax. Cardiomediastinal silhouette: Normal cardiomediastinal silhouette. Bones and soft tissues: No acute abnormality. IMPRESSION IMPRESSION: No acute radiographic abnormality. Urban Forester: JOHN Transcribe Date/Time: Jun 16 2023 1:05P Dictated by : ANCA SAMPSON MD This examination was interpreted and the report reviewed and electronically signed by: ANCA SAMPSON MD on Jun 16 2023 1:06PM [facility] Radiology Study observation (narrative) [facility] XR Chest PA and LateralOrder ed By: Ccf Provider on 06-16-2023 [facility] XR CHEST 2V FRONTAL/LATon [facility] XR Chest PA and Lateralon IMPRESSION: Minimal hazy opacity at the left base, atelectasis versus bronchopneumonia in the appropriate clinical setting. Urban Forester: [facility] Transcribe Date/Time: Jun 21 2022 11:40A Dictated by : ANCA SAMPSON MD This examination was interpreted and the report reviewed and electronically signed by: ANCA SAMPSON MD on Jun 21 2022 11:41AM [facility] DIVISION OF RADIOLOGY * * *Final Report* * * DATE OF EXAM: Jun 21 2022 11:24AM WOX 5291 - XR CHEST 2V FRONTAL/LAT / PROCEDURE REASON: Acute cough * * * * Physician Interpretation * * * * EXAMINATION: CHEST RADIOGRAPH (2 VIEW FRONTAL & LATERAL) CLINICAL HISTORY: Acute cough MQ: XC2_6 EXAM DATE/TIME: 06/21/2022 11:24 AM COMPARISON: Chest x-ray dated June 29, 2020 RESULT: Lines, tubes, and devices: None. Lungs and pleura: Minimal hazy opacity at the left base. No pleural effusion or pneumothorax. Cardiomediastinal silhouette: Normal cardiomediastinal silhouette. Bones and soft tissues: Mild degenerative changes. DIVISION OF RADIOLOGY Provider, [facility] - 06/21/2022 * * *Final Report* * * DATE OF EXAM: Jun 21 2022 11:24AM WOX 5291 - XR CHEST 2V FRONTAL/LAT / PROCEDURE REASON: Acute cough * * * * Physician Interpretation * * * * EXAMINATION: CHEST RADIOGRAPH (2 VIEW FRONTAL & LATERAL) CLINICAL HISTORY: Acute cough MQ: XC2_6 EXAM DATE/TIME: 06/21/2022 11:24 AM COMPARISON: Chest x-ray dated June 29, 2020 RESULT: Lines, tubes, and devices: None. Lungs and pleura: Minimal hazy opacity at the left base. No pleural effusion or pneumothorax. Cardiomediastinal silhouette: Normal cardiomediastinal silhouette. Bones and soft tissues: Mild degenerative changes. IMPRESSION IMPRESSION: Minimal hazy opacity at the left base, atelectasis versus bronchopneumonia in the appropriate clinical setting. Urban Forester: JOHN Transcribe Date/Time: Jun 21 2022 11:40A Dictated by : ANCA SAMPSON MD This examination was interpreted and the report reviewed and electronically signed by: ANCA SAMPSON MD on Jun 21 2022 11:41AM EST [facility] Radiology Study observation (narrative) [facility] XR Chest PA and LateralOrder ed By: Ccf Provider on 06-21-2022 [facility] XR Chest PA and Lateralon IMPRESSION: No acute radiographic abnormality. Urban Forester: PSCB Transcribe Date/Time: Jun 29 2020 4:05P Dictated by : SOFIA KRAUS MD This examination was interpreted and the report reviewed and electronically signed by: SOFIA KRAUS MD on Jun 29 2020 4:05PM [facility] DIVISION OF RADIOLOGY * * *Final Report* * * DATE OF EXAM: Jun 29 2020 3:39PM WOX 5291 - XR CHEST 2V FRONTAL/LAT / PROCEDURE REASON: Cough * * * * Physician Interpretation * * * * EXAMINATION: CHEST RADIOGRAPH (2 VIEW FRONTAL & LATERAL) CLINICAL HISTORY: Cough MQ: XC2_6 EXAM DATE/TIME: 06/29/2020 3:39 PM COMPARISON: No relevant prior studies available. RESULT: Lines, tubes, and devices: None. Lungs and pleura: No consolidation. No lung mass. No pleural effusion. No pneumothorax. Cardiomediastinal silhouette: Normal cardiomediastinal silhouette. Bones and soft tissues: There are degenerative changes in the spine. DIVISION OF RADIOLOGY Provider, [facility] - 06/29/2020 * * *Final Report* * * DATE OF EXAM: Jun 29 2020 3:39PM WOX 5291 - XR CHEST 2V FRONTAL/LAT / PROCEDURE REASON: Cough * * * * Physician Interpretation * * * * EXAMINATION: CHEST RADIOGRAPH (2 VIEW FRONTAL & LATERAL) CLINICAL HISTORY: Cough MQ: XC2_6 EXAM DATE/TIME: 06/29/2020 3:39 PM COMPARISON: No relevant prior studies available. RESULT: Lines, tubes, and devices: None. Lungs and pleura: No consolidation. No lung mass. No pleural effusion. No pneumothorax. Cardiomediastinal silhouette: Normal cardiomediastinal silhouette. Bones and soft tissues: There are degenerative changes in the spine. IMPRESSION IMPRESSION: No acute radiographic abnormality. Urban Forester: PSCB Transcribe Date/Time: Jun 29 2020 4:05P Dictated by : SOFIA KRAUS MD This examination was interpreted and the report reviewed and electronically signed by: SOFIA KRAUS MD on Jun 29 2020 4:05PM [facility] Radiology Study observation (narrative) [facility] XR Chest PA and LateralOrder ed By: Cc Provider on 06-29-2020 [facility] Vital Signs Date Time Vital Sign Value Performing Clinician Rita clifford 12-10-2024 09:20-0400 Body height 174 cm Mariela Rico MD Work Phone: [facility] 12-10-2024 09:20-0400 Body mass index (BMI) [Ratio] 22.93 kg/m2 Mariela Rico MD Work Phone: [facility] 12-10-2024 09:20-0400 Body weight 69.4 kg Mariela Rico MD Work Phone: [facility] 12-10-2024 09:20-0400 Diastolic blood pressure 70 mm[Hg] Mariela Rico MD Work Phone: [facility] 12-10-2024 09:20-0400 Heart rate 78 /min Mariela Rico MD Work Phone: [facility] 12-10-2024 09:20-0400 Respiratory rate 18 /min Mariela Rico MD Work Phone: [facility] 12-10-2024 09:20-0400 Systolic blood pressure 114 mm[Hg] Mariela Rico MD Work Phone: [facility] 12-09-2023 10:170400 Body height 176 cm Mariela Rico MD Work Phone: [facility] 12-09-2023 10:170400 Body weight 73.94 kg Mariela Rico MD Work Phone: [facility] 12-09-2023 10:17-0400 Diastolic blood pressure 78 mm[Hg] Mariela Rico MD Work Phone: [facility] 12-09-2023 10:17-0400 Heart rate 82 /min Mariela Rico MD Work Phone: [facility] 12-09-2023 10:17-0400 Respiratory rate 18 /min Mariela Rico MD Work Phone: [facility] 12-09-2023 10:17-0400 SaO2% (BldA) [Mass fraction] 96 % Mariela Rico MD Work Phone: [facility] 12-09-2023 10:17-0400 Systolic blood pressure 126 mm[Hg] Mariela Rico MD Work Phone: [facility] 06-21-2022 11:00-0400 Body temperature 98.2 [degF] Rama Athy PA-C Work Phone: [facility] 06-21-2022 11:00-0400 Body weight 71.76 kg Rama Athy PA-C Work Phone: [facility] 06-21-2022 11:00-0400 Diastolic blood pressure 72 mm[Hg] Rama Athy PA-C Work Phone: [facility] 06-21-2022 11:00-0400 Heart rate 87 /min Rama Athy PA-C Work Phone: [facility] 06-21-2022 11:00-0400 Respiratory rate 16 /min Rama Athy PA-C Work Phone: [facility] 06-21-2022 11:00-0400 SaO2% (BldA) [Mass fraction] 98 % Rama Athy PA-C Work Phone: [facility] 06-21-2022 11:00-0400 Systolic blood pressure 122 mm[Hg] Rama Athy PA-C Work Phone: [facility] Encounters Encounter Date Encounter Type Care Provider Facility Start: 04-16-2025 End: 04-16-2025 Refill Mariela Rico MD Work Phone: [facility] Comment on above: Refill Request Start: 12-16-2024 End: 12-19-2024 ambulatory Ira Hubbard APRN.WHEEL TRUING MACHINE TENDER Work Phone: Pulmonary Medicine Start: 12-12-2024 End: 12-13-2024 Follow-up encounter Mariela Rico MD Work Phone: [facility] Comment on above: Results Start: 12-10-2024 Encounter for genera l adult medical examination without abnormal findings MARIELA RICO [facility] Start: 12-10-2024 End: 12-10-2024 ambulatory MARIELA RICO Facility:[facility] Start: 12-10-2024 End: 12-10-2024 Patient encounter procedure Mariela Rico MD Work Phone: [facility] [place] Comment on above: Well adult exam (Candace meenakshi Dx); Hyperlipidemia, mixed; Smoker; Screening for depression; Encounter for screening examination for other mental health and behavioral disorders; Family hx of prostate cancer; Encounter for screening for diabetes mellitus; Prostate cancer screening; Encounter for immunization; Need for vaccination Start: 12-10-2024 End: 12-10-2024 Patient encounter status Mariela Rico MD Work Phone: [facility] Work Phone: Start: 09-04-2024 End: 09-05-2024 Refill Mariela Rico MD Work Phone: [facility] Comment on above: Refill Request Start: 12-10-2023 Telephone encounter Mariela Rico MD Work Phone: [facility] [place] Comment on above: Results Start: 12-09-2023 End: 12-09-2023 Patient encounter procedure Mariela Rico MD Work Phone: Family [facility] Comment on above: Well adult exam (Candace meenakshi Dx); Hyperlipidemia, mixed; Psoriasis; Gastroesophageal reflux disease without esophagitis; Smoker; Numbness and tingling in both hands; Prostate cancer screening; Encounter for screening for diabetes mellitus Start: 12-09-2023 End: 12-09-2023 Patient encounter status Mariela Rico MD Work Phone: [facility] Work Phone: Start: 06-16-2023 End: 06-16-2023 Subsequent hospital visit by physician Xr [facility] [place] Work Phone: Radiology Comment on above: Acute cough [R05.1] Start: 01-16-2023 Refill Antonia Muñoz on PA-C Work Phone: [facility] [place] Comment on above: Refill Request Start: 09-01-2022 Telephone encounter Mariela Rico MD Work Phone: [facility] [place] Comment on above: Results Start: 08-30-2022 Patient encounter status Sonny Rico MD Work Phone: [facility] Work Phone: Start: 08-08-2022 Refill Mariela briseno MD Work Phone: [facility] [place] Comment on above: Refill Request Start: 06-22-2022 ambulatory Cheryl Tory DIGITAL COMPUTER OPERATOR.WHEEL TRUING MACHINE TENDER Work Phone: [facility] Start: 06-22-2022 Follow-up encounter Cheryl kaufman DIGITAL COMPUTER OPERATOR.WHEEL TRUING MACHINE TENDER Work Phone: [facility] [place] Comment on above: Follow up appointmen t Start: 06-21-2022 End: 06-21-2022 Subsequent hospital visit by physician Oralia [facility] [place] Work Phone: Radiology Comment on above: Acute cough [R05.1] Start: 06-21-2022 End: 06-21-2022 Patient encounter procedure Rama Harris PA-C Work Phone: [facility] Comment on above: Pneumonia of left lo wer lobe due to infectious organism (Primary Dx) Start: 05-23-2022 Telephone encounter Mariela Rico MD Work Phone: [facility] Comment on above: fax COVID test resul ts to employer Start: 04-09-2022 Telephone encounter Mariela Rico MD Work Phone: [facility] Comment on above: Results Start: 01-17-2022 Refill Antonia Muñoz on PA-C Work Phone: [facility] [place] Comment on above: Refill Request Start: 09-18-2021 Patient encounter status Alyssa Ruggiero PA-C Work Phone: [facility] Work Phone: Start: 07-01-2021 End: 07-01-2021 Nursing evaluation of patient and report Mi Nurse Work Phone: [facility] [place] Comment on above: Encounter for immuni zation (Primary Dx) Start: 06-29-2020 End: 06-29-2020 Subsequent hospital visit by physician Xr [facility] [place] Work Phone: Radiology Comment on above: Cough [R05] Procedures Date Procedure Procedure Detail Performing Clinician Start: 12-10-2024 Adult depression scr eening assessment Mariela Rico MD Work Phone: Start: 12-10-2024 Lipid 1996 panel - S devin or Plasma Mariela Rico MD Work Phone: Start: 12-09-2023 Lipid 1996 panel - S devin or Plasma Mariela Rico MD Work Phone: Start: 06-16-2023 Radiologic exam ches t 2 views Mariela Alfaro DIGITAL COMPUTER OPERATOR.WHEEL TRUING MACHINE TENDER Work Phone: Start: 06-21-2022 Radiologic exam ches t 2 views Rama ROJASC Work Phone: Start: 06-30-2021 Adult depression scr eening assessment Antonia Ruggiero PA-C Work Phone: Start: 06-29-2020 Radiologic exam ches t 2 views Cheryl Spears DIGITAL COMPUTER OPERATOR.WHEEL TRUING MACHINE TENDER Work Phone: Start: 10-15-2018 Colonoscopy Antonia elizalde PA-C Work Phone: Plan of Treatment Date Care Activity Detail Author Start: 2037 RSV Vaccine (1 - 1-d ose 75+ series) RSV Vaccine (1 - 1-dose 75+ series) [facility] Start: 07-01-2031 Urine microalbumin profile [facility] Start: 12-10-2029 Lipid panel Lipid Screening [facility] Start: 12-10-2029 Prostate specific antigen measurement Prostate Cancer Screening Discussion [facility] Start: 12-08-2028 Lipid panel Lipid Screening [facility] Start: 12-08-2028 Prostate specific antigen measurement Prostate Cancer Screening Discussion [facility] Start: 10-15-2028 Colonoscopy COLONOSCOPY [facility] Start: 10-15-2028 COLORECTAL CANCER SCREENING COLORECTAL CANCER SCREENING [facility] Start: 10-15-2028 Screening for malign ant neoplasm of colon [facility] Start: 12-11-2027 Diabetes Screening Diabetes Screenin g [facility] Start: 12-04-2027 Pneumococcal vaccination Pneum ococcal Vaccine (1 of 2 - PCV) [facility] Comment on above: Postponed from 07/09 (Postponed To Appropriate Date) Start: 08-30-2027 LIPID SCREEN LIPID SCREEN [facility] Start: 08-30-2027 PROSTATE CANCER SCREENING DISCUSSION PROSTATE CANCER SCREENING DISCUSSION [facility] Start: 04-08-2027 LIPID SCREEN LIPID SCREEN [facility] Start: 12-08-2026 Diabetes Screening Diabetes Screenin g [facility] Start: 09-18-2026 LIPID SCREEN LIPID SCREEN [facility] Start: 06-30-2026 PROSTATE CANCER SCREENING DISCUSSION PROSTATE CANCER SCREENING DISCUSSION [facility] Start: 12-10-2025 Anxiety Screening Anxiety Screening [facility] Start: 12-10-2025 Depression Screening Depression Scre ening [facility] Start: 12-10-2025 End: 12-10-2025 Patient encounter procedure [facility] [place] Comment on above: Physical Start: 11-28-2025 End: 02-27-2026 Comprehensive metabolic 2000 panel - Serum or Plasma COMPREHENSIVE METABOLIC PANEL Lab Routine Hyperlipidemia, mixed Expected: 11/28/2025, Expires: 02/27/2026 [facility] Comment on above: Expected: 11/28/2025 , Expires: 02/27/2026 Start: 11-28-2025 End: 02-27-2026 Hemoglobin A1c in Blood HEMOGLOBIN A1C Lab Routine Well adult exam Encounter for screening for diabetes mellitus Expected: 11/28/2025, Expires: 02/27/2026 [facility] Comment on above: Expected: 11/28/2025 , Expires: 02/27/2026 Start: 11-28-2025 End: 02-27-2026 LIPID PANEL, NONFASTING LIPID PANEL, NONFASTING Lab Routine Hyperlipidemia, mixed Expected: 11/28/2025, Expires: 02/27/2026 [facility] Comment on above: Expected: 11/28/2025 , Expires: 02/27/2026 Start: 11-28-2025 End: 02-27-2026 Prostate specific Ag [Mass/volume] in Serum or Plasma PROSTATE-SPECIFIC ANTIGEN DIAGNOSTIC Lab Routine Well adult exam Family hx of prostate cancer Prostate cancer screening Expected: 11/28/2025, Expires: 02/27/2026 [facility] Comment on above: Expected: 11/28/2025 , Expires: 02/27/2026 Start: 11-28-2025 End: 02-27-2026 Urinalysis complete panel - Urine URINALYSIS, WITH MICROSCOPIC Lab Routine Hyperlipidemia, mixed Expected: 11/28/2025, Expires: 02/27/2026 [facility] Comment on above: Expected: 11/28/2025 , Expires: 02/27/2026 Start: 08-30-2025 DIABETES SCREEN DIABETES SCREEN [facility] Start: 05-05-2025 Influenza vaccination Influenza Vacc ine (#1) [facility] Start: 12-10-2024 End: 03-11-2025 Comprehensive metabolic 2000 panel - Serum or Plasma [facility] Work Phone: Comment on above: Expected: 12/10/2024 , Expires: 03/11/2025 Start: 12-10-2024 End: 03-11-2025 LIPID PANEL, NONFASTING [facility] Comment on above: Expected: 12/10/2024 , Expires: 03/11/2025 Start: 12-10-2024 End: 03-11-2025 Prostate specific Ag [Mass/volume] in Serum or Plasma [facility] Comment on above: Expected: 12/10/2024 , Expires: 03/11/2025 Start: 12-10-2024 End: 12-10-2024 Patient encounter procedure 12/10/2024 9:00 AM EDT Office Visit [facility] [address] [place], [place] [address] Mariela Rico MD [address] [place], [place] [address] Annual Physical [facility] [place] Comment on above: Annual Physical Start: 12-08-2024 RSV Vaccine (1 - 1-d ose 60+ series) RSV Vaccine (1 - 1-dose 60+ series) [facility] Comment on above: Postponed from 07/09 (Insurance Coverage) Start: 09-03-2024 Behavioral Health Screening Behavioral Health Screening [facility] Comment on above: Postponed from 09/04 (Declined at this time) Start: 06-30-2024 DIABETES SCREEN DIABETES SCREEN [facility] Start: 05-05-2024 Covid-19 Vaccine ( season) Covid-19 Vaccine ( season) [facility] Start: 05-05-2024 Influenza vaccination Influenza Vacc ine (#1) [facility] Start: 08-30-2023 HEPATITIS C SCREENING HEPATITIS C [facility] Comment on above: Postponed from 07/09 (Declined at this time) Start: 08-30-2023 HIV SCREENING HIV SCREENING [facility] Comment on above: Postponed from 07/09 (Declined at this time) Start: 08-30-2023 Influenza vaccination LUNG CANCER [facility] Comment on above: Postponed from 07/09 (Declined at this time) Start: 08-30-2023 PNEUMOCOCCAL (1 - PCV) PNEUMOCOCCAL (1 - PCV) [facility] Comment on above: Postponed from 07/09 (Declined at this time) Start: 09-04-2022 [facility]PRESSION [facility]MENT [facility] Start: 06-30-2022 Adult depression screening assessment DEPRESSION SCREENING [facility] Start: 06-30-2022 HEPATITIS C SCREENING HEPATITIS C [facility] Comment on above: Postponed from 07/09 (Declined at this time) Start: 06-30-2022 HIV SCREENING HIV SCREENING [facility] Comment on above: Postponed from 07/09 (Declined at this time) Start: 06-30-2022 ONE PNEUMOVAX PRIOR TO AGE 65 ONE PNEUMOVAX PRIOR TO AGE 65 [facility] Comment on above: Postponed from 07/09 (Declined at this time) Start: 06-30-2022 PNEUMOCOCCAL (1 - PCV) PNEUMOCOCCAL (1 - PCV) [facility] Comment on above: Postponed from 07/09 (Declined at this time) Start: 05-05-2022 Influenza vaccination INFLUENZA (#1) [facility] Start: 03-11-2022 COVID-19 VACCINE (5 - Booster for Moderna series) COVID-19 VACCINE (5 - Booster for Moderna series) [facility] Start: 12-05-2021 COVID-19 VACCINE (4 - Booster for Moderna series) COVID-19 VACCINE (4 - Booster for Moderna series) [facility] Start: 09-04-2021 DEPRESSION ASSESSMENT DEPRESSION ASS ESSMENT [facility] Start: 11-01-2014 FECAL OCCULT BLOOD FECAL OCCULT BLOO D [facility] Start: 11-01-2014 Screening for malign ant neoplasm of colon Fecal Occult Blood [facility] Start: 2012 Influenza vaccination LUNG CANCER [facility] Start: 2007 COLOGUARD (FIT-DNA) COLOGUARD (FIT-D NA) [facility] Start: [address] COLONOGRAPHY [facility] Start: 2007 Screening for malign ant neoplasm of colon [facility] Start: 2007 SIGMOIDOSCOPY SIGMOIDOSCOPY [facility] Start: 1981 Pneumococcal Vaccine : 50+ (1 of 2 - PCV) Pneumococcal Vaccine: 50+ (1 of 2 - PCV) [facility] Start: 1980 Anxiety Screening Anxiety Screening [facility] Start: 1980 Depression Screening Depression Scre ening [facility] Start: 1980 HEPATITIS C SCREENING HEPATITIS C [facility] Start: 1980 HIV SCREENING HIV SCREENING [facility] Start: 1968 PNEUMOCOCCAL (1 - PCV) PNEUMOCOCCAL (1 - PCV) [facility] Immunizations Immunization Date Immunization Notes Care Provider Moisés goncalves 12-10-2024 measles, mumps and rubella virus vaccine Mariela Rico MD Work Phone: [facility] 12-10-2024 pneumococcal conjuga te (PCV20) vaccine, 20 valent (PREVNAR 20) Mariela Rico MD Work Phone: [facility] 12-10-2024 pneumococcal Conjuga te, unspecified formulation Mariela Rico MD Work Phone: [facility] 10-14-2024 COVID-19 vaccine, ag e 12+ yr (MODERNA) Mariela Rico MD Work Phone: [facility] 06-04-2024 influenza, seasonal, injectable Mariela Rico MD Work Phone: [facility] 06-04-2024 influenza virus vaccine, unspecified formulation Mariela Rico MD Work Phone: [facility] 07-08-2023 COVID-19 vaccine, ag e 12+ yr, season ([email or web address]) Mariela Rico MD Work Phone: [facility] 07-08-2023 influenza, injectabl e, quadrivalent, contains preservative Mariela Rico MD Work Phone: [facility] 07-08-2023 influenza virus vaccine, unspecified formulation [facility] Work Phone: [facility] 06-17-2022 influenza, injectabl e, quadrivalent, contains preservative Mariela Rico MD Work Phone: [facility] 09-18-2021 zoster vaccine recombinant Antonia Ruggiero PA-C Work Phone: [facility] 07-01-2021 tetanus toxoid, redu jacqueline diphtheria toxoid, and acellular pertussis vaccine, adsorbed Antonia Ruggiero PA-C Work Phone: [facility] 07-01-2021 zoster vaccine recombinant Antonia Ruggiero PA-C Work Phone: [facility] 06-07-2021 influenza, seasonal, injectable Antonia Ruggiero PA-C Work Phone: [facility] Work Phone: 06-10-2020 influenza, seasonal, injectable Antonia Ruggiero PA-C Work Phone: [facility] 06-04-2018 influenza, injectabl e, quadrivalent, contains preservative Antonia Ruggiero PA-C Work Phone: [facility] 08-13-2010 influenza virus vaccine, unspecified formulation Antonia Ruggiero PA-C Work Phone: [facility] 08-13-2010 tetanus toxoid, redu jacqueline diphtheria toxoid, and acellular pertussis vaccine, adsorbed Antonia Ruggiero PA-C Work Phone: [facility] Payers Date Payer Category Payer [facility] RAINA LUTZ O FREDO [id number] 2023 Unknown [id number] 2021 Private Health Insurance NELSON ANTONIO OAP [id number] 2021-Present [phone] [address] [place] [address] Open Access [id number] 2016 Private Health Insurance [id number] Social History Date Type Detail Facility Start: 02-13-2018 End: 06-21-2022 Tobacco smoking status COIS Smokes tobacco daily [facility] History of tobacco use Cigarette Smoker [facility] Start: 09-18-2021 End: 12-10-2024 Alcohol intake Current non-drinker of alcohol (finding) [facility] Start: 09-13-2021 History SDOH Alcohol Frequency 1 [facility] Start: 09-13-2021 History SDOH Alcohol Std Drinks 98 [facility] Start: 09-13-2021 History SDOH Social Connections Phone 2 [facility] Start: 09-13-2021 History SDOH Social Connections Living 3 [facility] Start: 09-13-2021 History SDOH Physica l Activity DPW 0 [facility] Start: 09-13-2021 History SDOH Financial 4 [facility] Start: 1960 Sex Assigned At Male [facility] Start: 05-30-2020 End: 06-21-2022 Exposure to SARS-CoV-2 (event) Not sure [facility] Start: 02-13-2018 End: 07-08-2023 Cigarettes smoked current (pack per day) - Reported 1 [facility] Start: 02-13-2018 End: 06-21-2022 Tobacco use and exposure Smokeless tobacco non-user [facility] Start: 03-29-2022 End: 04-08-2022 Exposure to SARS-CoV-2 (event) Yes [facility] Start: 09-13-2021 End: 07-08-2023 Social connection and isolation panel [facility] Do you belong to any clubs or organizations such as islam groups, unions, fraternal or athletic groups, or school groups? No [facility] Are you now , , , , never or living with a partner? [facility] How often to you hav e a drink containing alcohol? Never [facility] Start: 08-05-[address] inks containing alcohol do you have on a typical day? Patient declined [facility] How hard is it for y ou to pay for the very basics like food, housing, medical care, and heating Not very hard [facility] Do you feel stress - tense, restless, nervous, or anxious, or unable to sleep at night because your mind is troubled all the time - these days [OSQ] Not at all [facility] (I/We) worried wheth er (my/our) food would run out before (I/we) got money to buy more. Never true [facility] Functional Status Date Assessment Result Facility 11-21-2013 Are you deaf, or do you have serious difficulty hearing Yes 11/21/2013 8:10 AM Stefany Lewis LPN Yes [facility] 11-21-2013 Are you blind, or do you have serious difficulty seeing, even when wearing glasses No 11/21/2013 8:10 AM Stefany Lewis LPN No [facility] 11-21-2013 Do you have serious difficulty walking or climbing stairs No 11/21/2013 8:10 AM Stefany Lewis LPN No [facility] 11-21-2013 Do you have difficul ty dressing or bathing No 11/21/2013 8:10 AM EDT Stefany Schroeder LPN No [facility] 11-21-2013 Because of a physica l, mental, or emotional condition, do you have difficulty doing errands alone such as visiting a physician's office or shopping No 11/21/2013 8:10 AM EDT Stefany Schroeder LPN No [facility] Mental Status Date Assessment Result Facility 11-21-2013 Because of a physica l, mental, or emotional condition, do you have serious difficulty concentrating, remembering, or making decisions No 11/21/2013 8:10 AM EDT Stefany Schroeder LPN No [facility] Clinical Notes 06-29-2020 to 04-16-2025 Telephone Encounter - Lanny Parker LPN - 04/16/2025 11:03 AM EDTTelephone Encounter - Lanny Parker LPN - 04/16/2025 11:03 AM EDTPatient InstructionsPatient Instructions Note Date & Type Note Facility 04-16-2025 Telephone encounter Note Patient Malissa calling asking to have rx's sent to mail away pharmacy please, would be cheaper for them. Pharmacy changed.to [facility] as requested. [facility] 04-16-2025 Miscellaneous Notes Patient Malissa calling asking to have rx's sent to mail away pharmacy please, would be cheaper for them. Pharmacy changed.to [facility] as requested. The patient has been identified by name and date of : Yes Caregiver verified no other encounters exist for this prescription request: Yes Caregiver confirmed with patient/requestor that no other refills are due, in the near future, with this provider at this time: Yes The last office visit in the department: 12/10/2024 Does the patient have a future office visit with this provider/department: Yes 12/10/2025 Requested Prescriptions Pending Prescriptions Disp Refills famotidine (PEPCID) 40 mg tablet 90 tablet 1 Sig: Take 1 tablet by mouth once daily. rosuvastatin (CRESTOR) 5 mg tablet 90 tablet 1 Sig: Take 1 tablet by mouth daily at bedtime. Winter Segundo RN April 16, 2025 10:11 AM documented in this encounter [facility] 04-16-2025 Telephone encounter Note The patient has been identified by name and date of : Yes Caregiver verified no other encounters exist for this prescription request: Yes Caregiver confirmed with patient/requestor that no other refills are due, in the near future, with this provider at this time: Yes The last office visit in the department: 12/10/2024 Does the patient have a future office visit with this provider/department: Yes 12/10/2025 Requested Prescriptions Pending Prescriptions Disp Refills famotidine (PEPCID) 40 mg tablet 90 tablet 1 Sig: Take 1 tablet by mouth once daily. rosuvastatin (CRESTOR) 5 mg tablet 90 tablet 1 Sig: Take 1 tablet by mouth daily at bedtime. Winter Segundo RN April 16, 2025 10:11 AM [facility] 12-16-2024 Note Patient Outreach ([facility]) LUIS ELMON ([id number]) 1960 M NFR Date Time Provider Department 12/16/24 IRA HUBBARD During your visit today, we recorded the following information about you: Allergies As of Date: 12/16/2024 (No Known Allergies) Date Reviewed: 12/10/2024 Reviewed by: Mariela Rico MD - Fully Assessed Visit Diagnosis:Tobacco abuse [Z72.0] Order(s):[facility] [[id number]] Order #: [id number]: 1 FUTURE Prescriptions as of 12/19/2024 - rosuvastatin (CRESTOR) 5 mg tablet Take 1 tablet by mouth daily at bedtime. - famotidine (PEPCID) 40 mg tablet Take 1 tablet by mouth once daily. - mometasone (ELOCON) 0.1 % cream Apply to areas twice a day. On for 4 days and off for 3 days. Repeat as needed. 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] 08/10/2010 Prostate cancer screening [Z12.5] 05/06/2014 Well adult exam [Z00.00] 05/12/2014 Smoker [F17.200] 07/24/2015 Fam hx-ischem heart disease [Z82.49] 08/13/2010 Family hx of prostate cancer [Z80.42] 08/13/2010 Colon cancer screening [Z12.11] 09/20/2018 Hyperlipidemia, mixed [E78.2] 09/18/2021 Encounter for screening for diabetes mellitus [*09/18/2021 Osteoarthritis [M19.90] 08/30/2022 Gastroesophageal reflux disease without esophag*12/09/2023 Encounter Status:Closed by LUCIE MULLEN on 12/19/24 [facility] 12-13-2024 Telephone encounter Note Pt notified of results via [place]. Reyna Chairez Ma [facility] 12-13-2024 Miscellaneous Notes Pt notified of results via [place]. Reyna Chairez Ma Let patient know recent labs were all ok. documented in this encounter [facility] 12-12-2024 Telephone encounter Note Let patient know recent labs were all ok. [facility] 12-10-2024 Instructions Mariela Rico MD - 12/10/2024 9:58 AM EDT Please get labs and urine test done on or after 11/28/2025 prior to your next visit. documented in this encounter [facility] 12-10-2024 History of Presen t illness Narrative Chief Complaint Patient presents with: Physical HPI Luis Lemon is a 64 year old male who presents here today for Physical. Patient with Hx of hyperlipidemia, psoriasis, smker, family Hx of prostate cancer and those reviewed below. Patient continues to smoke daily and aware of the health risks. Not interested in quitting. Patient continues to have good control of his GERD with the Pepcid. Past medical history, appointments, medications, allergies reviewed. Previous Medical History PAST MEDICAL HISTORY Diagnosis Date Contact dermatitis and other eczema, due to unspecified cause 10/17/2007 Fam hx-ischem heart disease 08/13/2010 Family hx of prostate cancer 08/13/2010 Hyperlipidemia, mixed 09/18/2021 Osteoarthritis 08/30/2022 Knee and shoulder. Sees ortho Psoriasis Smoker 07/24/2015 Started around age 22 and up to 1 PPD Snoring Xerosis cutis 08/10/2010 Previous Surgical History PAST SURGICAL HISTORY Procedure Laterality Date COLONOSCOPY FLX DX W/COLLJ SPEC WHEN PFRMD 10/15/2018 Colonoscopy PAST SURGICAL HISTORY OF 1991 left forearm injury- laceration REPAIR DIAPHR HERNIA,THOR/ABD 2004 +/- Abdominal hernia ([facility]) Family History FAMILY HISTORY Problem Relation Age of Onset None Mother Heart Father first at age 45-50 Emphysema Father Prostate Cancer Other (thinks dad may have had this) Colon Cancer Other none known Patient Allergies ALLERGIES No Known Allergies Current Medications Current Outpatient Medications on File Prior to Visit Medication Sig rosuvastatin (CRESTOR) 5 mg tablet Take 1 tablet by mouth daily at bedtime. famotidine (PEPCID) 40 mg tablet Take 1 tablet by mouth once daily. mometasone (ELOCON) 0.1 % cream Apply to areas twice a day. On for 4 days and off for 3 days. Repeat as needed. Uyndhfdrtjluqyj-Jkoaylgcl-WI (BROMFED DM) 2-30-10 mg/5 mL syrup Take 5 mL by mouth four times a day as needed. No current facility-administered medications on file prior to visit. Social History Social History Tobacco Use Smoking status: Every Day Current packs/day: 1.00 Average packs/day: 1 pack/day for 20.0 years (20.0 ttl pk-yrs) Types: Cigarettes Smokeless tobacco: Never Vaping Use Vaping status: Never Used Substance Use Topics Alcohol use: No Drug use: No Comment: hx marijuana use in the past Review of Symptoms REVIEW OF SYSTEMS GENERAL: No unintentional weight loss, malaise or fevers HEENT: Negative for frequent or significant headaches, No changes in hearing or vision, no nose bleeds. Has nasal drainage form allergies. NECK: Negative for lumps, goiter, pain and significant neck swelling RESPIRATORY: Negative for cough, hemoptysis, wheezing, COPD, dyspnea or shortness of breath CARDIOVASCULAR: Negative for chest pain, leg swelling, hypertension, CHF or palpitations GI: No nausea, vomiting, or diarrhea, No heartburn or reflux symptoms, and no blood : No history of dysuria, frequency or blood MUSCULOSKELETAL: Negative for joint pain or swelling, back pain or muscle pain SKIN: Negative for lesions, rash, and itching PSYCH: Negative for sleep disturbance, mood disorder and recent psychosocial stressors HEMATOLOGY/LYMPHOLOGY: Negative for prolonged bleeding, bruising easily or swollen nodes ENDOCRINE: Negative for cold or heat intolerance, polyuria, polydipsia and goiter NEURO: No history of headaches, syncope, paralysis, seizures or tremors EXAM: BP 114/70 Pulse 78 Resp 18 Ht 174 cm (5' 8.5) Wt 69.4 kg (153 lb) BMI 22.93 kg/m Last 5 Encounter Wt Readings: Date: Wt: 12/10/2024 69.4 kg (153 lb) 12/09/2023 73.9 kg (163 lb) 06/16/2023 72.5 kg (159 lb 12.8 oz) 06/04/2023 72 kg (158 lb 12.8 oz) 08/30/2022 71.7 kg (158 lb) General Appearance: Well appearing, alert, in no acute distress, well-hydrated, well nourished.. Skin: Skin color, texture, turgor normal, no suspicious rashes or lesions. Head: Normocephalic, no masses, lesions, tenderness or abnormalities. Eyes: Anicteric sclera. Pupils are equally round and reactive to light. Extraocular movements are intact. . Ears: External ears, TM's normal, canals clear. Nose/Sinuses: Nares normal, septum midline, mucosa normal, no drainage or sinus tenderness. Oropharynx: Lips, mucosa, and tongue normal, teeth and gums normal, oropharynx normal. Neck: Supple, no adenopathy; thyroid symmetric, normal size, no bruits. Lungs: Lungs clear to auscultation. No wheezing, rhonchi, rales.. Heart: RRR without murmur, gallop, or rubs. No ectopy. Abdomen: Normal abdominal exam, Abdomen soft, non-tender. Bowel sounds normal. No masses, organomegaly. Extremities: No deformities, edema, skin discoloration. Good capillary refill. . Musculoskeletal: Muscular strength intact, No joint swelling, deformity, or tenderness. Peripheral Pulses: Normal. Neurologic: Gait normal. Reflexes normal and symmetric. Sensation grossly intact.. Genitalia: Normal, Penis normal. No urethral discharge. Scrotum normal to palpation. No hernia.. Rectal: Normal exam. Health Maintenance List Depression Screening Never done Anxiety Screening Never done Pneumococcal Vaccine: 50+(1 of 2 - PCV) Never done Diabetes Screening due on 12/08/2026 Colorectal Cancer Screening due on 10/15/2028 Lipid Screening due on 12/08/2028 Prostate Cancer Screening Discussion due on 12/08/2028 DTaP,Tdap,Td Vaccine(3 - Td or Tdap) due on 07/01/2031 RSV Vaccine(1 - 1-dose 75+ series) due on 2037 Influenza Vaccine Completed Shingrix Vaccine Completed Covid-19 Vaccine Completed Hepatitis C Screening Discontinued HIV Screening Discontinued Data reviewed A/P ASSESSMENT/PLAN: 1. Well adult exam - ICD9: V70.0, ICD10: Z00.00 (primary diagnosis) - Counseled on healthy diet and regular exercise - Smoking cessation encouraged; discussed health risks and quitting strategies. Patient is not ready to quit - Follow up for annual exam in one year Check - HEMOGLOBIN A1C - PROSTATE-SPECIFIC ANTIGEN DIAGNOSTIC 2. Hyperlipidemia, mixed - ICD9: 272.2, ICD10: E78.2 - Control undetermined, due for labs - Continue current medications - Counseled on healthy diet and regular exercise Check - COMPREHENSIVE METABOLIC PANEL - URINALYSIS, WITH MICROSCOPIC - LIPID PANEL, NONFASTING 3. Smoker - ICD9: 305.1, ICD10: F17.200 - Cessation encouraged. - Counseling was given focusing on the harmful effects of this addiction especially given the patient's medical condition(s) which will be worsened because of the chemicals in tobacco. 4. Screening for depression - ICD9: V79.0, ICD10: Z13.31 - DEPRESSION SCREENING 5. Encounter for screening examination for other mental health and behavioral disorders - ICD9: V79.8, ICD10: Z13.39 - ANXIETY SCREENING 6. Family hx of prostate cancer - ICD9: V16.42, ICD10: Z80.42 Check - PROSTATE-SPECIFIC ANTIGEN DIAGNOSTIC 7. Encounter for screening for diabetes mellitus - ICD9: V77.1, ICD10: Z13.1 Check - HEMOGLOBIN A1C 8. Prostate cancer screening - ICD9: V76.44, ICD10: Z12.5 Check - PROSTATE-SPECIFIC ANTIGEN DIAGNOSTIC 9. Encounter for immunization - ICD9: V03.89, ICD10: Z23 - PNEUMOCOCCAL VACCINE, 20 VALENT (PREVNAR 20): given 10. Need for vaccination - ICD9: V05.9, ICD10: Z23 - MMR VACCINE (M-M-R II, PRIORIX): given F/u in a year or sooner if needed. Labs prior placed. Mariela Rico MD SENSITIVE EXAMINATION CONSENT: The sensitive examination was discussed with the Patient or Patient's Authorized Casino Cashier. As applicable, any other physician, advance practice provider, medical student, or other health professional student that will be observing or involved in the sensitive examination for educational or training purposes was discussed with the Patient or Authorized Casino Cashier. The Patient or Authorized Casino Cashier has agreed to proceed with the sensitive examination. documented in this encounter [facility] 12-10-2024 Note HNO ID: [id number] Author: MARIELA RICO MD Service: ? Author Type: Physician Type: Progress Notes Filed: 12/10/2024 19:17 Note Text: Chief Complaint Patient presents with: Physical HPI Luis Lemon is a 64 year old male who presents here today for Physical. Patient with Hx of hyperlipidemia, psoriasis, smker, family Hx of prostate cancer and those reviewed below. Patient continues to smoke daily and aware of the health risks. Not interested in quitting. Patient continues to have good control of his GERD with the Pepcid. Past medical history, appointments, medications, allergies reviewed. Previous Medical History PAST MEDICAL HISTORY Diagnosis Date Contact dermatitis and other eczema, due to unspecified cause 10/17/2007 Fam hx-ischem heart disease 08/13/2010 Family hx of prostate cancer 08/13/2010 Hyperlipidemia, mixed 09/18/2021 Osteoarthritis 08/30/2022 Knee and shoulder. Sees ortho Psoriasis Smoker 07/24/2015 Started around age 22 and up to 1 PPD Snoring Xerosis cutis 08/10/2010 Previous Surgical History PAST SURGICAL HISTORY Procedure Laterality Date COLONOSCOPY FLX DX W/COLLJ SPEC WHEN PFRMD 10/15/2018 Colonoscopy PAST SURGICAL HISTORY OF 1991 left forearm injury- laceration REPAIR DIAPHR HERNIA,THOR/ABD 2004 +/- Abdominal hernia ([facility]) Family History FAMILY HISTORY Problem Relation Age of Onset None Mother Heart Father first at age 45-50 Emphysema Father Prostate Cancer Other (thinks dad may have had this) Colon Cancer Other none known Patient Allergies ALLERGIES No Known Allergies Current Medications Current Outpatient Medications on File Prior to Visit Medication Sig rosuvastatin (CRESTOR) 5 mg tablet Take 1 tablet by mouth daily at bedtime. famotidine (PEPCID) 40 mg tablet Take 1 tablet by mouth once daily. mometasone (ELOCON) 0.1 % cream Apply to areas twice a day. On for 4 days and off for 3 days. Repeat as needed. Tqgopltprxunmom-Zyowecwoh-PN (BROMFED DM) 2-30-10 mg/5 mL syrup Take 5 mL by mouth four times a day as needed. No current facility-administered medications on file prior to visit. Social History Social History Tobacco Use Smoking status: Every Day Current packs/day: 1.00 Average packs/day: 1 pack/day for 20.0 years (20.0 ttl pk-yrs) Types: Cigarettes Smokeless tobacco: Never Vaping Use Vaping status: Never Used Substance Use Topics Alcohol use: No Drug use: No Comment: hx marijuana use in the past Review of Symptoms REVIEW OF SYSTEMS GENERAL: No unintentional weight loss, malaise or fevers HEENT: Negative for frequent or significant headaches, No changes in hearing or vision, no nose bleeds. Has nasal drainage form allergies. NECK: Negative for lumps, goiter, pain and significant neck swelling RESPIRATORY: Negative for cough, hemoptysis, wheezing, COPD, dyspnea or shortness of breath CARDIOVASCULAR: Negative for chest pain, leg swelling, hypertension, CHF or palpitations GI: No nausea, vomiting, or diarrhea, No heartburn or reflux symptoms, and no blood : No history of dysuria, frequency or blood MUSCULOSKELETAL: Negative for joint pain or swelling, back pain or muscle pain SKIN: Negative for lesions, rash, and itching PSYCH: Negative for sleep disturbance, mood disorder and recent psychosocial stressors HEMATOLOGY/LYMPHOLOGY: Negative for prolonged bleeding, bruising easily or swollen nodes ENDOCRINE: Negative for cold or heat intolerance, polyuria, polydipsia and goiter NEURO: No history of headaches, syncope, paralysis, seizures or tremors EXAM: BP 114/70 Pulse 78 Resp 18 Ht 174 cm (5' 8.5) Wt 69.4 kg (153 lb) BMI 22.93 kg/m? Last 5 Encounter Wt Readings: Date: Wt: 12/10/2024 69.4 kg (153 lb) 12/09/2023 73.9 kg (163 lb) 06/16/2023 72.5 kg (159 lb 12.8 oz) 06/04/2023 72 kg (158 lb 12.8 oz) 08/30/2022 71.7 kg (158 lb) General Appearance: Well appearing, alert, in no acute distress, well-hydrated, well nourished.. Skin: Skin color, texture, turgor normal, no suspicious rashes or lesions. Head: Normocephalic, no masses, lesions, tenderness or abnormalities. Eyes: Anicteric sclera. Pupils are equally round and reactive to light. Extraocular movements are intact. . Ears: External ears, TM's normal, canals clear. Nose/Sinuses: Nares normal, septum midline, mucosa normal, no drainage or sinus tenderness. Oropharynx: Lips, mucosa, and tongue normal, teeth and gums normal, oropharynx normal. Neck: Supple, no adenopathy; thyroid symmetric, normal size, no bruits. Lungs: Lungs clear to auscultation. No wheezing, rhonchi, rales.. Heart: RRR without murmur, gallop, or rubs. No ectopy. Abdomen: Normal abdominal exam, Abdomen soft, non-tender. Bowel sounds normal. No masses, organomegaly. Extremities: No deformities, edema, skin discoloration. Good capillary refill. . Musculoskeletal: Muscular strength intact, No joint (more content not included)... [facility] 09-05-2024 Telephone encounter Note Prescription Refill Information The patient has been identified by name and date of : Yes Caregiver verified no other encounters exist for this prescription request: Yes Caregiver confirmed with patient/requestor that no other refills are due, in the near future, with this provider at this time: No The last office visit in the department: 12/09/23 Does the patient have a future office visit with this provider/department: Yes Requested Prescriptions Pending Prescriptions Disp Refills rosuvastatin (CRESTOR) 5 mg tablet 90 tablet 1 Sig: Take 1 tablet by mouth daily at bedtime. famotidine (PEPCID) 40 mg tablet 90 tablet 1 Sig: Take 1 tablet by mouth once daily. Reyna Chairez MA September 05, 2024 11:47 AM [facility] 09-05-2024 Miscellaneous Notes Prescription Refill Information The patient has been identified by name and date of : Yes Caregiver verified no other encounters exist for this prescription request: Yes Caregiver confirmed with patient/requestor that no other refills are due, in the near future, with this provider at this time: No The last office visit in the department: 12/09/23 Does the patient have a future office visit with this provider/department: Yes Requested Prescriptions Pending Prescriptions Disp Refills rosuvastatin (CRESTOR) 5 mg tablet 90 tablet 1 Sig: Take 1 tablet by mouth daily at bedtime. famotidine (PEPCID) 40 mg tablet 90 tablet 1 Sig: Take 1 tablet by mouth once daily. Reyna Chairez MA September 05, 2024 11:47 AM documented in this encounter [facility] 12-11-2023 Miscellaneous Notes Spoke with pt and information listed below given. Pt verbalizes understanding. Mirta Collins LPN Left message for patient to contact office. Ligia Pan MA Let patient know recent labs and UA were all ok. documented in this encounter [facility] 12-09-2023 Instructions Mariela Rico MD - 12/09/2023 10:51 AM EDT If you are considering the RSV vaccine check to see if covered by our insurance and if you can get it at you doctors office or a pharmacy. documented in this encounter [facility] 12-09-2023 History of Presen t illness Narrative Chief Complaint Patient presents with: Physical HPI Luis Lemon is a 63 year old male who presents here today for Above Complaints. and Chronic Medical Conditions.. Patient with Hx of hyperlipidemia, psoriasis, smker, family Hx of prostate cancer and those reviewed below. Has been doing ok. Stopped seeing Derm for his psoriasis in the past. Most things were not helping. Was on the pill Tx and injection. Currently uses a moisturizer to help control. Past medical history, appointments, medications, allergies reviewed. Previous Medical History PAST MEDICAL HISTORY Diagnosis Date Contact dermatitis and other eczema, due to unspecified cause 10/17/2007 Fam hx-ischem heart disease 08/13/2010 Family hx of prostate cancer 08/13/2010 Hyperlipidemia, mixed 09/18/2021 Psoriasis Smoker 07/24/2015 Started around age 22 and up to 1 PPD Snoring Xerosis cutis 08/10/2010 Previous Surgical History PAST SURGICAL HISTORY Procedure Laterality Date COLONOSCOPY FLX DX W/COLLJ SPEC WHEN PFRMD 10/15/2018 Colonoscopy PAST SURGICAL HISTORY OF 1991 left forearm injury- laceration REPAIR DIAPHR HERNIA,THOR/ABD 2004 +/- Abdominal hernia ([facility]) Family History FAMILY HISTORY Problem Relation Age of Onset None Mother Heart Father first at age 45-50 Emphysema Father Prostate Cancer Other (thinks dad may have had this) Colon Cancer Other none known Patient Allergies ALLERGIES No Known Allergies Current Medications Current Outpatient Medications on File Prior to Visit Medication Sig Gooznhpmmphnwge-Dhqdvxpvq-LF (BROMFED DM) 2-30-10 mg/5 mL syrup Take 5 mL by mouth four times a day as needed. rosuvastatin (CRESTOR) 5 mg tablet Take 1 tablet by mouth daily at bedtime. benzonatate (TESSALON PERLE) 100 mg capsule Take 2 capsules by mouth three times a day as needed. (Patient not taking: Reported on 06/16/2023) No current facility-administered medications on file prior to visit. Social History Social History Tobacco Use Smoking status: Every Day Packs/day: 1.00 Years: 20.00 Additional pack years: 0.00 Total pack years: 20.00 Types: Cigarettes Smokeless tobacco: Never Vaping Use Vaping Use: Never used Substance Use Topics Alcohol use: No Drug use: No Comment: hx marijuana use in the past Review of Symptoms REVIEW OF SYSTEMS GENERAL: No weight loss, malaise or fevers HEENT: Negative for frequent or significant headaches, No changes in vision, no nose bleeds or other nasal problems. Has hearing issues. NECK: Negative for lumps, goiter, pain and significant neck swelling RESPIRATORY: Negative for cough, hemoptysis, wheezing, COPD, dyspnea or shortness of breath CARDIOVASCULAR: Negative for leg swelling, hypertension, CHF or palpitations. Still gets the occasional chest pain that is sporadic and resolves on it's own even if being active. GI: No nausea, vomiting, or diarrhea. Has been getting GERD 4-5 days a week. Either takes a tums or Prilosec OTC. : No history of dysuria, frequency or blood MUSCULOSKELETAL: Negative for joint pain or swelling, back pain or muscle pain SKIN: Negative for lesions, rash, and itching PSYCH: Negative for sleep disturbance, mood disorder and recent psychosocial stressors HEMATOLOGY/LYMPHOLOGY: Negative for prolonged bleeding, bruising easily or swollen nodes ENDOCRINE: Negative for cold or heat intolerance, polyuria, polydipsia and goiter NEURO: No history of headaches, syncope, paralysis, seizures or tremors. Has noted numbness in his fingers for the past 6 months if not longer. Not dropping things. EXAM: BP 126/78 Pulse 82 Resp 18 Ht 176 cm (5' 9.29) Wt 73.9 kg (163 lb) SpO2 96% BMI 23.87 kg/m Last 5 Encounter Wt Readings: Date: Wt: 12/09/2023 73.9 kg (163 lb) 06/16/2023 72.5 kg (159 lb 12.8 oz) 06/04/2023 72 kg (158 lb 12.8 oz) 08/30/2022 71.7 kg (158 lb) 06/21/2022 71.8 kg (158 lb 3.2 oz) General Appearance: Well appearing, alert, in no acute distress, well-hydrated, well nourished.. Skin: Skin color, texture, turgor normal, no suspicious rashes or lesions. Has some psoriatic plaques on the skin of the penis and in the but crack area. Head: Normocephalic, no masses, lesions, tenderness or abnormalities. Eyes: Anicteric sclera. Pupils are equally round and reactive to light. Extraocular movements are intact. . Ears: External ears, TM's normal, canals clear. Nose/Sinuses: Nares normal, septum midline, mucosa normal, no drainage or sinus tenderness. Oropharynx: Lips, mucosa, and tongue normal, teeth and gums normal, oropharynx normal. Neck: Supple, no adenopathy; thyroid symmetric, normal size, no bruits. Lungs: Lungs clear to auscultation. No wheezing, rhonchi, rales.. Heart: RRR without murmur, gallop, or rubs. No ectopy. Abdomen: Normal abdominal exam, Abdomen soft, non-tender. Bowel sounds normal. No masses, organomegaly. Extremities: No deformities, edema, skin discoloration, Good capillary refill. . Musculoskeletal: Muscular strength intact, No joint swelling, deformity, or tenderness. Peripheral Pulses: Normal. Neurologic: Gait normal. Reflexes normal and symmetric. Sensation to light touch and crainal nerves 2-12 intact. Tenel's and phalen's testing was neg.. Genitalia: Normal, Penis normal. No urethral discharge. Scrotum normal to palpation. No hernia.. Rectal: Normal exam. Health Maintenance List Pneumococcal Vaccine(1 of 2 - PCV) Never done Hepatitis C Screening Never done HIV Screening Never done Lung Cancer Screening Never done RSV Vaccine(1 - 1-dose 60+ series) Never done Behavioral Health Screening Never done Diabetes Screening due on 08/30/2025 Lipid Screening due on 08/30/2027 Prostate Cancer Screening Discussion due on 08/30/2027 Colorectal Cancer Screening due on 10/15/2028 DTaP,Tdap,Td Vaccine(3 - Td or Tdap) due on 07/01/2031 Influenza Vaccine Completed Shingrix Vaccine Completed Covid-19 Vaccine Completed Data reviewed A/P ASSESSMENT/PLAN: 1. Well adult exam - ICD9: V70.0, ICD10: Z00.00 (primary diagnosis) - Counseled on healthy diet and regular exercise - Smoking cessation encouraged; discussed risks to health and quitting strategies. Patient is not ready to quit - Follow up for annual exam in one year Check - HGB A1C - PSA/PROSTSPECAG DIAG 2. Hyperlipidemia, mixed - ICD9: 272.2, ICD10: E78.2 - await labs - Continue current medications - Counseled on healthy diet and regular exercise - ROSUVASTATIN 5 MG TABLET Check - COMP METABOLIC PANEL - URINALYSIS, WITH MICROSCOPIC - LIPID PANEL, NONFASTING 3. Psoriasis - ICD9: 696.1, ICD10: L40.9 - will trial Elocon. 4. Gastroesophageal reflux disease without esophagitis - ICD9: 530.81, ICD10: K21.9 - Begin treatment with Pepcid 40 mg every day. If not controlled will change to Omeprazole 20 mg a day. 5. Smoker - ICD9: 305.1, ICD10: F17.200 - Cessation encouraged. - Counseling was given focusing on the harmful effects of this addiction especially given the patient's medical condition(s) which will be worsened because of the chemicals in tobacco. 6. Numbness and tingling in both hands - ICD9: 782.0, ICD10: R20.0, R20.2 Check - TSH BLD - VITAMIN B12 BLOOD - MAGNESIUM BLD - FOLATE SERUM - if all normal will proceed with NCS/EMG's. 7. Prostate cancer screening - ICD9: V76.44, ICD10: Z12.5 Check - PSA/PROSTSPECAG DIAG 8. Encounter for screening for diabetes mellitus - ICD9: V77.1, ICD10: Z13.1 Check - HGB A1C F/u in a year WAE sooner if issues Mariela Rico MD documented in this encounter [facility] 01-16-2023 Miscellaneous Notes Patient has been identified by name and date of : Yes Requested Prescriptions Pending Prescriptions Disp Refills rosuvastatin (CRESTOR) 5 mg tablet 90 tablet 1 Sig: Take 1 tablet by mouth daily at bedtime. RX INSTRUCTIONS: Patient aware RX will be sent to pharmacy. No need to notify patient. Ligia Pan MA [place] 08/2022 Nov 08/2023 Last refill: 08/2022 documented in this encounter [facility] 09-01-2022 Miscellaneous Notes Patient notified and voiced understanding. Ligia Pan MA Let patient know recent labs were al ok. documented in this encounter [facility] 08-08-2022 Miscellaneous Notes Patient has been identified by name and date of : Yes Requested Prescriptions Pending Prescriptions Disp Refills rosuvastatin (CRESTOR) 5 mg tablet 90 tablet 1 Sig: Take 1 tablet by mouth daily at bedtime. RX INSTRUCTIONS: Patient aware RX will be sent to pharmacy. No need to notify patient. Ligia Pan MA [place]: 09/2021 Nov: 08/2022 Last refill: 01/2022 documented in this encounter [facility] 06-21-2022 History of Presen t illness Narrative This note was created using Danger. Subjective Luis Lemon is a 61 year old male. HPI Patient presents with the chief complaint of cough and congestion. He states he had COVID about a month ago. His cough had almost gone away but then seem to worsen the past 4 days. He has had runny nose and sore throat again the past few days. He denies chest pain or shortness of breath. He is a smoker. Denies asthma or COPD. He did have some diarrhea. No vomiting. Review of Systems Constitutional: Negative. HENT: Positive for congestion and sore throat. Negative for ear pain. Respiratory: Positive for cough. Negative for shortness of breath. Cardiovascular: Negative. Gastrointestinal: Negative. Genitourinary: Negative. Musculoskeletal: Negative. All other systems reviewed and are negative. PAST MEDICAL HISTORY Diagnosis Date Contact dermatitis and other eczema, due to unspecified cause 10/17/2007 Fam hx-ischem heart disease 08/13/2010 Family hx of prostate cancer 08/13/2010 Hyperlipidemia, mixed 09/18/2021 Psoriasis Smoker 07/24/2015 Started around age 22 and up to 1 PPD Snoring Xerosis cutis 08/10/2010 Current Outpatient Medications Medication Sig Dispense Refill rosuvastatin (CRESTOR) 5 mg tablet Take 1 tablet by mouth daily at bedtime. 90 tablet 1 azithromycin (ZITHROMAX) 250 mg tablet Take 2 tablets by mouth once daily for 1 day, THEN 1 tablet once daily for 4 days. 6 tablet 0 amoxicillin-clavulanic acid (AUGMENTIN) 875-125 mg per tablet Take 1 tablet by mouth twice daily for 5 days. 10 tablet 0 benzonatate (TESSALON PERLES) 100 mg capsule Take 2 capsules by mouth three times daily as needed. 30 capsule 0 albuterol HFA (PROAIR HFA) 90 mcg/actuation inhaler Inhale 2 Puffs as instructed every 6 hours as needed. 1 Each 0 No current facility-administered medications for this visit. PAST SURGICAL HISTORY Procedure Laterality Date COLONOSCOPY FLX DX W/COLLJ SPEC WHEN PFRMD 10/15/2018 Colonoscopy PAST SURGICAL HISTORY OF 1991 left forearm injury- laceration REPAIR DIAPHR HERNIA,THOR/ABD 2005 +/- Abdominal hernia ([facility]) FAMILY HISTORY Problem Relation Age of Onset None Mother Heart Father first at age 45-50 Emphysema Father Prostate Cancer Other (thinks dad may have had this) Colon Cancer Other none known Social History Tobacco Use Smoking status: Every Day Packs/day: 1.00 Years: 20.00 Pack years: 20.00 Types: Cigarettes Smokeless tobacco: Never Substance Use Topics Alcohol use: No Drug use: No Comment: hx marijuana use in the past Objective BP 122/72 Pulse 87 Temp 36.8 C (98.2 F) (Tympanic) Resp 16 Wt 71.8 kg (158 lb 3.2 oz) SpO2 98% BMI 23.70 kg/m Physical Exam Vitals reviewed. Constitutional: Appearance: Normal appearance. HENT: Head: Normocephalic and atraumatic. Right Ear: Tympanic membrane and external ear normal. Left Ear: Tympanic membrane, ear canal and external ear normal. Nose: Congestion present. Mouth/Throat: Mouth: Mucous membranes are moist. Pharynx: Oropharynx is clear. Cardiovascular: Rate and Rhythm: Normal rate and regular rhythm. Heart sounds: Normal heart sounds. Pulmonary: Effort: Pulmonary effort is normal. Breath sounds: Normal breath sounds. Comments: Harsh cough Musculoskeletal: Cervical back: Neck supple. Lymphadenopathy: Cervical: No cervical adenopathy. Skin: General: Skin is warm and dry. Neurological: Mental Status: He is alert. Assessment and Plan ASSESSMENT/PLAN: 1. Pneumonia of left lower lobe due to infectious organism - ICD9: 486, ICD10: J18.9 Chest x-ray shows some haziness in the left lower lobe consistent with bronchopneumonia. He will be covered with Augmentin and azithromycin. Also given an inhaler. Follow-up with PCP to ensure resolution of this from his chest x-ray. Patient agreeable plan. - XR CHEST 2V FRONTAL/LAT Rama Harris PA-C documented in this encounter [facility] 05-23-2022 Miscellaneous Notes Patient Malissa calling asking to have copy of COVID test results faxed to employer [employer] attention Luis Cordero fax number is [phone]. Printed results and faxed as requested. documented in this encounter [facility] 04-11-2022 Miscellaneous Notes Patient notified and verbalized understanding Shantelle Ponce Cma Let patient know lipid panel was good and LFT's ok. documented in this encounter [facility] 01-18-2022 Miscellaneous Notes The following approved medication requests have been transmitted electronically. Signed Prescriptions Disp Refills rosuvastatin (CRESTOR) 5 mg tablet 90 tablet 1 Sig: Take 1 tablet by mouth daily at bedtime. BONNIE: No Authorizing Provider: MARIELA RICO MD Patient has been identified by name and date of : Yes Patient phones for refill(s): Pending Prescriptions Disp Refills ROSUVASTATIN 5 MG TABLET 90 tablet 1 Sig: Take 1 tablet by mouth daily at bedtime. BONNIE: No Date of last office visit in primary care:09/18/21 Please advise. Thank you. Mildred Smart LPN documented in this encounter [facility] 06-29-2020 History of Presen t illness Narrative Radiology Service Progress Note PATIENT NAME: Luis Lemon DATE OF SERVICE: June 29, 2020 TIME: 3:33 PM PATIENT IDENTITY VERIFICATION COMPLETED USING TWO (2) IDENTIFIERS: Name and Date of confirmed by patient verbally. FALL SCREENING: Has the patient had 2 falls in the last year or 1 fall with injury or currently using an Ambulatory Assistive Device (Walker, Cane, Wheelchair, Crutches, etc.)? No PATIENT GENDER DATA: Male PATIENT RELEVANT IMPLANT DATA REVIEWED: Yes RADIOLOGY DEPARTMENT: General X-ray: Exam(s) Completed: Chest X-Ray PERIPHERAL IV DATA: Not applicable SIGNED BY: RT Aquiles June 29, 2020 3:33 PM documented in this encounter [facility] Evaluation note Diagnosis Hyperlipidemia, mixed Mixed hyperlipidemia [facility] Diagnosis Encounter for immunization- Primary Need for other specified prophylactic vaccination against single bacterial disease [facility] Diagnosis Pneumonia of left lower lobe due to infectious organism- Primary [facility] Diagnosis Well adult exam- Primary Routine general medical examination at a health care facility Hyperlipidemia, mixed Mixed hyperlipidemia Psoriasis Other psoriasis Gastroesophageal reflux disease without esophagitis Esophageal reflux Smoker Tobacco use disorder Numbness and tingling in both hands Prostate cancer screening Special screening for malignant neoplasm of prostate Encounter for screening for diabetes mellitus Screening for diabetes mellitus [facility] Cough [facility] Diagnosis Hyperlipidemia, mixed Mixed hyperlipidemia [facility] Diagnosis Well adult exam- Primary Routine general medical examination at a health care facility Hyperlipidemia, mixed Mixed hyperlipidemia Smoker Tobacco use disorder Screening for depression Encounter for screening examination for other mental health and behavioral disorders Family hx of prostate cancer Family history of malignant neoplasm of prostate Encounter for screening for diabetes mellitus Screening for diabetes mellitus Prostate cancer screening Special screening for malignant neoplasm of prostate Encounter for immunization Need for other specified prophylactic vaccination against single bacterial disease Need for vaccination Need for prophylactic vaccination and inoculation against unspecified single disease [facility] Diagnosis Tobacco abuse Tobacco use disorder [facility] Hyperlipidemia, mixed Mixed hyperlipidemia documented in this encounter [facility] Advance Directives Documents on File Type Date Recorded Patient [employer]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 Advance Directive(s) 10/15/2018 12:29 PM Health Concerns Infection Onset Date Last Indicated Resolved Time COVID-19 Confirmed 05/22/2022 05/22/2022 Summary Purpose Family History No Family History Records Found Additional Source Comments Source Comments (unrecognize d section and content) In the event this informatio n is protected by the Federal Confidentiality of Alcohol and Drug Abuse Patient Records regulations: The Federal rules restrict any use of the information to criminally investigate or prosecute any alcohol or drug abuse patient.[facility] the event this information is protected by the Federal Confidentiality of Alcohol and Drug Abuse Patient Records regulations: The Federal rules restrict any use of the information to criminally investigate or prosecute any alcohol or drug abuse patient.[facility] the event this information is protected by the Federal Confidentiality of Alcohol and Drug Abuse Patient Records regulations: The Federal rules restrict any use of the information to criminally investigate or prosecute any alcohol or drug abuse patient.[facility] the event this information is protected by the Federal Confidentiality of Alcohol and Drug Abuse Patient Records regulations: The Federal rules restrict any use of the information to criminally investigate or prosecute any alcohol or drug abuse patient.[facility] the event this information is protected by the Federal Confidentiality of Alcohol and Drug Abuse Patient Records regulations: The Federal rules restrict any use of the information to criminally investigate or prosecute any alcohol or drug abuse patient.[facility] the event this information is protected by the Federal Confidentiality of Alcohol and Drug Abuse Patient Records regulations: The Federal rules restrict any use of the information to criminally investigate or prosecute any alcohol or drug abuse patient.[facility] the event this information is protected by the Federal Confidentiality of Alcohol and Drug Abuse Patient Records regulations: The Federal rules restrict any use of the information to criminally investigate or prosecute any alcohol or drug abuse patient.[facility] the event this information is protected by the Federal Confidentiality of Alcohol and Drug Abuse Patient Records regulations: The Federal rules restrict any use of the information to criminally investigate or prosecute any alcohol or drug abuse patient.[facility] the event this information is protected by the Federal Confidentiality of Alcohol and Drug Abuse Patient Records regulations: The Federal rules restrict any use of the information to criminally investigate or prosecute any alcohol or drug abuse patient.[facility] the event this information is protected by the Federal Confidentiality of Alcohol and Drug Abuse Patient Records regulations: The Federal rules restrict any use of the information to criminally investigate or prosecute any alcohol or drug abuse patient.[facility] the event this information is protected by the Federal Confidentiality of Alcohol and Drug Abuse Patient Records regulations: The Federal rules restrict any use of the information to criminally investigate or prosecute any alcohol or drug abuse patient.[facility] the event this information is protected by the Federal Confidentiality of Alcohol and Drug Abuse Patient Records regulations: The Federal rules restrict any use of the information to criminally investigate or prosecute any alcohol or drug abuse patient.[facility] the event this information is protected by the Federal Confidentiality of Alcohol and Drug Abuse Patient Records regulations: The Federal rules restrict any use of the information to criminally investigate or prosecute any alcohol or drug abuse patient.[facility] the event this information is protected by the Federal Confidentiality of Alcohol and Drug Abuse Patient Records regulations: The Federal rules restrict any use of the information to criminally investigate or prosecute any alcohol or drug abuse patient.[facility] the event this information is protected by the Federal Confidentiality of Alcohol and Drug Abuse Patient Records regulations: The Federal rules restrict any use of the information to criminally investigate or prosecute any alcohol or drug abuse patient.[facility] the event this information is protected by the Federal Confidentiality of Alcohol and Drug Abuse Patient Records regulations: The Federal rules restrict any use of the information to criminally investigate or prosecute any alcohol or drug abuse patient.[facility] the event this information is protected by the Federal Confidentiality of Alcohol and Drug Abuse Patient Records regulations: The Federal rules restrict any use of the information to criminally investigate or prosecute any alcohol or drug abuse patient.[facility] the event this information is protected by the Federal Confidentiality of Alcohol and Drug Abuse Patient Records regulations: The Federal rules restrict any use of the information to criminally investigate or prosecute any alcohol or drug abuse patient.[facility] the event this information is protected by the Federal Confidentiality of Alcohol and Drug Abuse Patient Records regulations: The Federal rules restrict any use of the information to criminally investigate or prosecute any alcohol or drug abuse patient.[facility] Reason for Visit (unrecogniz ed section and content) Reason Onset Date Comments Refill Request 01/17/2022 Reason Comments Results Reason Comments fax COVID test results to employer Reason Comments Cough Cough, bodyaches, ch ills, St and LAI x 4 days Reason Onset Date Comments Refill Request 08/08/2022 Reason Onset Date Comments Refill Request 01/16/2023 Reason Comments Physical Reason Onset Date Comments Refill Request 09/04/2024 Reason Onset Date Comments Results 12/12/2024 Reason Onset Date Comments Refill Request 04/16/2025 Care Teams (unrecognized sec tion and content) Janitorial Assistant Relationship Specialty Start Date End Date Mariela Rico MD [address] [place] [address] PCP - General Family Practice 11/01/13 Janitorial Assistant Relationship Specialty Start Date End Date Mariela Rico MD [facility] [place] [address] PCP - General Family Practice 11/01/13 Janitorial Assistant Relationship Specialty Start Date End Date Mariela Rico MD [facility] [place] [address] PCP - General Family Practice 11/01/13 Janitorial Assistant Relationship Specialty Start Date End Date Mariela Rico MD [address] [facility] [place] [address] PCP - General Family Practice 11/01/13 Janitorial Assistant Relationship Specialty Start Date End Date Mariela Rico MD [facility] [address] PCP - General Family Medicine 11/01/13 Janitorial Assistant Relationship Specialty Start Date End Date Mariela Rico MD [facility] [place] [address] PCP - General Family Medicine 11/01/13 Janitorial Assistant Relationship Specialty Start Date End Date Mariela Rico MD [address] [place] [address] PCP - General Family Medicine 11/01/13 Janitorial Assistant Relationship Specialty Start Date End Date Mariela Rico MD [address] [place] [address] PCP - General Family Medicine 11/01/13 Janitorial Assistant Relationship Specialty Start Date End Date Mariela Rico MD [address] [place] [address] PCP - General Family Medicine 11/01/13 Janitorial Assistant Relationship Specialty Start Date End Date Mariela Rico MD [address] [place] [address] PCP - General Family Medicine 11/01/13 Janitorial Assistant Relationship Specialty Start Date End Date Mariela Rico MD [address] [place] [address] PCP - General Family Medicine 11/01/13 Janitorial Assistant Relationship Specialty Start Date End Date Mariela Rico MD [address] [place] [address] PCP - General Family Medicine 11/01/13 Janitorial Assistant Relationship Specialty Start Date End Date Mariela Rico MD [address] [place] [address] PCP - General Family Medicine 11/01/13 Janitorial Assistant Relationship Specialty Start Date End Date Mariela Rico MD [address] [place] [address] PCP - General Family Medicine 11/01/13 Olga Marsh APRN.WHEEL TRUING MACHINE TENDER [address] [place] [address] Food Specialist Family Medicine 08/10/24 Antonia Ruggiero PA-C [address] [place] [address] Food Specialist Family Medicine 08/10/24 Janitorial Assistant Relationship Specialty Start Date End Date Mariela Rico MD [address] [place] [address] PCP - General Family Medicine 12/09/24 Olga Marsh APRN.WHEEL TRUING MACHINE TENDER [address] [place] [address] Food Specialist Family Medicine 08/10/24 Antonia Ruggiero PA-C [address] [place] [address] Food Specialist Family Medicine 08/10/24 Janitorial Assistant Relationship Specialty Start Date End Date Mariela Rico MD [address] [place] [address] PCP - General Family Medicine 12/09/24 Olga Marsh DIGITAL COMPUTER OPERATOR.WHEEL TRUING MACHINE TENDER [facility] [place] [address] Food Specialist Family Medicine 08/10/24 Antonia Ruggiero PA-C [address] [place] [address] Food Specialist Family Medicine 08/10/24 Janitorial Assistant Relationship Specialty Start Date End Date Mariela Rico MD [address] [place] [address] PCP - [facility] 12/09/24 Olga Marsh APRN.WHEEL TRUING MACHINE TENDER [address] [place], [place] [id number] [facility] 08/10/24 Antonia Ruggiero PA-C [address] [place], [place] [address] [facility] 08/10/24 Janitorial Assistant Relationship Specialty Start Date End Date Mariela Rico MD [address] [place] [address] PCP - [facility] 12/09/24 Olga Marsh, KARMEN.WHEEL TRUING MACHINE TENDER [address] [place] [id number] [facility] 02/03/25 Antonia Ruggiero PA-C [address] [place], [place] [id number] [facility] 02/03/25 (unrecognized sect ion and content) No Status Records Found INFORMATION SOURCE (unrecogn ized section and content) DATE CREATED AUTHOR 12/21/2024 [facility] FOR RECORDS PERTAINING TO PATIENTS WHO ARE OR HAVE BEEN ENROLLED IN A CHEMICAL DEPENDENCY/SUBSTANCEABUSE PROGRAM, SOME INFORMATION MAY BE OMITTED. This clinical summary was aggregated from multiple sources. Caution should be exercised in using it in the provision of clinical care. This summary normalizes information from multiple sources, and as a consequence, information in this document may materially change the coding, format and clinical context of patient data. In addition, data may be omitted in some cases. CLINICAL DECISIONS SHOULD BE BASED ON THE PRIMARY CLINICAL RECORDS. [employer] [facility]. provides no warranty or guarantee of the accuracy or completeness of information in this document.
== END 2025-08-22 21:50 | disposition home or self-care (01) ==
LOC: ED 21:47
PROVIDERS: Emergency Provider Emergency Medicine; PCP Family Medicine; Visit Provider Emergency Medicine
DX: U07.1 COVID-19 (principal); R05.9 Cough, unspecified; F17.210 Nicotine dependence, cigarettes, uncomplicated
CPT/HCPCS: 71046; 99282